=== PATIENT | male | born 1980 | race Caucasian/White ===

== ENCOUNTER 2018-10-03 19:41 | Inpatient (IN) | payer MEDICAID ==
[~2018-10-03] VITALS: Ht 160 cm; Wt 84.0 kg
[~2018-10-03 19:41] MED LIST: ASPI-1046 PO; ATOR20TA38 PO; METO-407 PO; NEPH PO; NIFE60TA60 PO
[2018-10-03 19:45] VITALS: Ht 160 cm; Wt 84.0 kg
--- NOTE | 2018-10-03 20:00 | ERD ---
ER Documentation Chief Complaint Chief Complaint chest pain since yesterday. last dialysis wednesday HPI This is a 38-year-old man with end-stage kidney disease hemodialysis dependent and last hemodialysis about 2 days ago presenting with sharp nonexertional nonradiating chest pain, tactile fever, cough x3 days. Patient also complains of nasal congestion and sore throat. He has had no vomiting or diarrhea, no abdominal pain, no headache or blurry vision, patient denies shortness of breath. ROS All systems reviewed and are negative except as per history of present illness. Medications Home Meds Active Scripts Atorvastatin Calcium* (Atorvastatin Calcium*) 20 Mg Tablet, 20 MG PO QHS, #30 [facility] Aspirin* (Aspirin* (EC)) 81 Mg Tablet.dr, 81 MG PO DAILY for 30 Days, TAB [facility] Multivit/Ca Carb/B Cmplx/Fa* (Tara-Henna*) 1 Tab Tab, 1 TAB PO DAILY for 30 Days, TAB [facility] 06/[facility]/15 Nifedipine* (Procardia XL*) 60 Mg Tabsr, 60 MG PO BID for 30 Days, TAB [facility] 06/19/15 Metoprolol Tartrate* (Lopressor*) 100 Mg Tab, 100 MG PO BID for 30 Days, TAB [facility] 06/19/15 Allergies Allergies: Coded Allergies: No Known Allergy (Unverified , 06/20/15) PMhx/Soc Hypertension, hypertensive retinopathy, end-stage kidney disease hemodialysis dependent, hyperlipidemia, history of stroke History of Surgery: No Anesthesia Reaction: No Hx Neurological Disorder: No Hx Respiratory Disorders: No Hx Cardiac Disorders: Yes Hx Psychiatric Problems: No Hx Miscellaneous Medical Probl: No Hx Alcohol Use: No Hx Substance Use: No Hx Tobacco Use: No FmHx Family History: No diabetes Physical Exam Vitals Vital Signs Date Temp Pulse Resp B/P (MAP) Pulse Ox O2 O2 Flow FiO2 Time Delivery Rate 10/03/18 101.1 20:17 10/03/18 101.1 90 27 169/92 95 Room Air 20:00 (117) 10/03/18 103.1 89 20 169/92 100 19:45 (117) Physical Exam GENERAL: Well-developed, well-nourished, appears dehydrated, febrile HEENT: Dry mucous membranes, pink conjunctiva, no cervical spine tenderness or step-off deformities, no pharyngeal erythema or exudates NEURO: Alert and oriented 3, cranial nerves II through XII intact bilaterally, pupils equal round reactive to light, no focal deficits or facial asymmetry, sensation intact distally Strength 5/5 in upper and lower extremities bilaterally CARDIAC: Tachycardic and regular, no murmurs rubs or gallops LUNGS: Crackles at the left base, poor breath sounds bilaterally, no wheezing or stridor ABDOMEN: Soft nontender, no guarding, no rigidity, no rebound, no psoas sign no obturator sign. SKIN: Hot and dry to touch, no abrasions, contusions, or hematomas, no lacerations, no ecchymosis, no target lesions, and without ulcers EXTREMITIES: No clubbing cyanosis or edema, calves are bilaterally symmetrical, no Homans sign, no popliteal cord sign. Distal pulses equal and bilateral PSYCH: Normal affect without agitation or irritability Result Diagram: 10/03/18200110/03/182001 Results 24 hrs Laboratory Tests Test 10/03/18 20:02 10/03/18 20:06 10/03/18 20:39 White Blood Count 14.4 10^3/ul Red Blood Count 3.91 10^6/ul Hemoglobin 10.8 g/dl Hematocrit 33.3 % Mean Corpuscular Volume 85.2 fl Mean Corpuscular Hemoglobin 27.6 pg Mean Corpuscular 32.4 g/dl Hemoglobin Concent Red Cell Distribution Width 15.4 % Platelet Count 121 10^3/UL Mean Platelet Volume 11.1 fl Immature Granulocytes % 0.700 % Neutrophils % 82.6 % Lymphocytes % 6.3 % Monocytes % 10.1 % Eosinophils % 0.1 % Basophils % 0.2 % Nucleated Red Blood Cells % 0.0 /100WBC Immature Granulocytes # 0.100 10^3/ul Neutrophils # 11.9 10^3/ul Lymphocytes # 0.9 10^3/ul Monocytes # 1.5 10^3/ul Eosinophils # 0.0 10^3/ul Basophils # 0.0 10^3/ul Nucleated Red Blood Cells # 0.0 10^3/ul Prothrombin Time 15.4 Sec Prothrombin Time Ratio 1.2 INR International Normalized Ratio 1.21 Activated Partial Thromboplast 36.4 Sec Time Sodium Level 140 mmol/L Potassium Level 4.2 mmol/L Chloride Level 100 mmol/L Carbon Dioxide Level 25 mmol/L Anion Gap 15 Blood Urea Nitrogen 75 mg/dl Creatinine 14.70 mg/dl Est Glomerular Filtrat Rate mL/min 4 mL/min Glucose Level 122 mg/dl Calcium Level 9.4 mg/dl Total Bilirubin 0.3 mg/dl Direct Bilirubin 0.00 mg/dl Indirect Bilirubin 0.3 mg/dl Aspartate Amino Transf (AST/SGOT) 17 IU/L Alanine 35 IU/L Aminotransferase (ALT/SGPT) Alkaline Phosphatase 73 IU/L Troponin I 0.109 ng/ml C-Reactive Protein 8.4 mg/dl Total Protein 7.4 g/dl Albumin 4.3 g/dl Globulin 3.10 g/dl Albumin/Globulin Ratio 1.38 Lipase 61 U/L POC Venous Lactate 1.2 mmol/L Lactic Acid Level 1.0 mmol/L Current Medications Medications Dose Sig/Ester Start Time Status Last (Trade) Ordered Route PRN Stop Time Admin Dose Reason Admin Ibuprofen 600 mg ONCE ONCE 10/03/18 DC 10/03/18 (Motrin) PO 20:30 20:17 10/03/18 20:31 Cefepime HCl 50 ml @ ONCE ONCE 10/03/18 DC 10/03/18 100 mls/hr IVPB 20:30 20:17 10/03/18 20:59 Vancomycin VANCOMYCIN PER 10/03/18 HCl (Vanco PER PHARMACY PROTOCOL XX 21:00 Iv Per Pharmacy) IV Flush 3 ml PER 10/03/18 (NS 3 ml) PROTOCOL IV 21:00 Ondansetron 4 mg Q6H PRN 10/03/18 HCl (Zofran IV 21:00 Inj) NAUSEA/VOMITI NG 650 mg Q6H PRN 10/03/18 Acetaminophen PO .PAIN 1-3 21:00 (Tylenol OR TEMP Tab) Morphine 2 mg Q4H PRN 10/03/18 Sulfate IV .PAIN 21:00 (morphine) 7-10 Docusate 100 mg Q12H PRN 10/03/18 Sodium PO 21:00 (Colace) .CONSTIPATION Bisacodyl 5 mg DAILY PRN 10/03/18 (Dulcolax) PO 21:00 .CONSTIPATION Heparin 5,000 unit Q8 SC 10/03/18 Sodium 22:00 (Porcine) (Heparin (5000 Units/1ml)) Vancomycin 250 ml @ ONCE ONCE 10/03/18 10/03/18 HCl 1.25 83.333 mls/ IVPB 21:00 21:20 gm/Sodium hr 10/03/18 23:59 Chloride Aspirin 324 mg ONCE ONCE 10/03/18 DC 10/03/18 (Aspirin) PO 21:30 21:09 10/03/18 21:31 Procedures/MDM IV line was established patient was placed on manager cardiac rhythm strip revealed a sinus rhythm at about 90 bpm with upright P and T waves. Patient was afebrile, blood cultures were ordered results are pending I will follow-up EKG performed, read by me: 92 bpm, normal sinus rhythm, normal axis, no acute ST segment changes, narrow QRS complex, with good R-wave progression in precordial leads, anterolateral T wave inversions 1 view chest x-ray performed, read by me reveals congestion bilaterally and left lower lobe infiltrate, cardiomegaly, no pneumothorax. I administered ibuprofen 600 mg p.o. for fever, cefepime 1 g IV, and vancomycin 1 g IV CBC reveals a leukocytosis of 14, electrolytes revealed kidney failure, liver function tests normal, troponin negative, lactic acid level low. I do not suspect sepsis. I also administered aspirin 324 mg p.o. for cardioprotective measures. Patient will be admitted to telemetry setting for continued medical management and continued IV antibiotics Departure Diagnosis: Primary Impression: Hypertension Hypertension type: essential hypertension Qualified Codes: I10 - Essential (primary) hypertension Additional Impressions: Chest pain Chest pain type: unspecified Qualified Codes: R07.9 - Chest pain, unspecified Pneumonia Pneumonia type: due to unspecified organism Laterality: left Lung location: lower lobe of lung Qualified Codes: J18.1 - Lobar pneumonia, unspecified organism End stage kidney disease Condition: KIRIT Landis MD October 03, 2018 20:00
[2018-10-03] MEDS ORDERED: IBUPROFEN 600 MG TAB PO ONE (20:30)
[2018-10-03] MEDS ORDERED: CEFEPIME 1GM/50 ML (PMX) 50 ML IVPB ONE (20:30)
[2018-10-03] MEDS ORDERED: VANCOMYCIN HCL 1.25 GM in SOD CHLORIDE 0.9% 250 ML IVPB ONE (21:00)
[2018-10-03] MEDS ORDERED: NACL 0.9% 3 ML SYG IV SCH (21:00)
[2018-10-03] MEDS ORDERED: VANCOMYCIN IV PER PHARMACY XX SCH (21:00)
[2018-10-03] MEDS ORDERED: ONDANSETRON 4 MG INJ IV PRN (21:00)
[2018-10-03] MEDS ORDERED: ACETAMINOPHEN 325 MG TAB PO PRN (21:00)
[2018-10-03] MEDS ORDERED: DOCUSATE SODIUM 100 MG CAP PO PRN (21:00)
[2018-10-03] MEDS ORDERED: morphine 2 MG INJ IV PRN (21:00)
[2018-10-03] MEDS ORDERED: BISACODYL (EC) 5 MG TAB PO PRN (21:00)
[2018-10-03] MEDS ORDERED: ASPIRIN 81 MG TAB PO ONE (21:30)
[2018-10-03] MEDS: HEPARIN 5,000 UNIT/1 ML VIAL SC SCH (22:36)
--- NOTE | 2018-10-03 23:06 | HP ---
Date/Time of Note Date/Time of Note DATE: 10/03/18 TIME: 22:55 Assessment/Plan VTE Prophylaxis Pharmacological prophylaxis: heparin Lines/Catheters IV Catheter Type (from Nrs): Saline Lock Assessment/Plan Hospital Course This is a 38-year-old male being admitted to the telemetry floor for: #1 chest pain: Rule out ACS versus pneumonia. Will trend cardiac enzymes x3, first troponin was 0.1. EKG did show T wave inversions in leads V5 and V6. His chest pain does seem pleuritic nonetheless we will work-up for ACS. Will check an echocardiogram. Will consult cardiology. #2 Sepsis: Secondary to underlying healthcare associated pneumonia versus other. Patient's symptoms did start after his dialysis on Wednesday. Will treat the patient at the current time with vancomycin and Zosyn renally dose. Await culture results. Trend lactic acid levels. #3 End-stage renal disease: Patient reports that he has been on HD for approxi mately 2 years, I do not have a recent renal function. His BUN is 75/creatinine 14.7 patient is on HD Wednesday. His rehabilitation physician is . We will need to continue patient home medications. Avoid nephrotoxic agents. Will consult nephrology. #4 hypertension: Resume patient's home medications #5 hyperlipidemia: Continue statin #6 questionable obesity: We will need to confirm patient's correct body weight and height, nonetheless in the meantime I will check a hemoglobin A1c, lipid panel, TSH #7 DVT GI prophylaxis: Heparin subcu, no GI prophylaxis indicated Further treatment strategy will be implemented as per the clinical course Result Diagram: 10/03/18200110/03/182001 Results 24hrs Laboratory Tests Test 10/03/18 20:02 10/03/18 20:06 10/03/18 20:39 10/03/18 22:07 White Blood Count 14.4 #H Red Blood Count 3.91 L Hemoglobin 10.8 L Hematocrit 33.3 L Mean Corpuscular 85.2 Volume Mean Corpuscular 27.6 L Hemoglobin Mean Corpuscular 32.4 Hemoglobin Concent Red Cell 15.4 H Distribution Width Platelet Count 121 L Mean Platelet Volume 11.1 #H Immature 0.700 H Granulocytes % Neutrophils % 82.6 H Lymphocytes % 6.3 L Monocytes % 10.1 Eosinophils % 0.1 Basophils % 0.2 Nucleated Red Blood 0.0 Cells % Immature 0.100 H Granulocytes # Neutrophils # 11.9 H Lymphocytes # 0.9 Monocytes # 1.5 H Eosinophils # 0.0 Basophils # 0.0 Nucleated Red Blood 0.0 Cells # Prothrombin Time 15.4 H Prothrombin Time 1.2 Ratio INR International 1.21 Normalized Ratio Activated 36.4 H Partial Thromboplast Time Sodium Level 140 Potassium Level 4.2 Chloride Level 100 Carbon Dioxide Level 25 Anion Gap 15 H Blood Urea Nitrogen 75 H Creatinine 14.70 H Est Glomerular 4 L Filtrat Rate mL/min Glucose Level 122 Calcium Level 9.4 Total Bilirubin 0.3 Direct Bilirubin 0.00 Indirect Bilirubin 0.3 Aspartate Amino 17 Transf (AST/SGOT) Alanine 35 Aminotransferase (AL T/SGPT) Alkaline Phosphatase 73 Troponin I 0.109 C-Reactive Protein 8.4 H Total Protein 7.4 Albumin 4.3 Globulin 3.10 Albumin/Globulin 1.38 Ratio Lipase 61 POC Venous Lactate 1.2 Lactic Acid Level 1.0 0.7 HPI/ROS Admit Date/Time Admit Date/Time Hx of Present Illness Chief complaint: Left-sided chest pain x2 days, fevers This is a 38-year-old man with end-stage kidney disease hemodialysis dependent and last hemodialysis about 2 days ago presenting with sharp nonexertional nonradiating chest pain, tactile fever, cough x3 days. Patient also complains of nasal congestion and sore throat. He has had no vomiting or diarrhea, no abdominal pain, no headache or blurry vision, patient denies shortness of breath. Allergies: NKDA Medications: See IMANI GUIDO Const: As per HPI Eyes : No pain discharge or redness or change in visual acuity ENT: No pain, sore throat, congestion, congestion, dysphagia or discharge Respiratory: As per HPI Cardiovascular: As per HPI GI : no change in appetite, abdominal pain, nausea, vomiting, diarrhea, constipation, or change in the color his stool Genitourinary: No dysuria, hematuria, flank pain , discharge or CVA tenderness Musculoskeletal: No joint pain, back pain, neck pain, restricted range of motion in neck or joints Skin: No rash, bruising or hives Neuro: No headache, dizziness, syncope, seizure, focal weakness Endocrine: No polyuria, polydipsia, temperature intolerance Psych: No hallucination, depression, anxiety or suicidal ideation PMH/Family/Social Past Medical History End-stage renal disease on hemodialysis Wednesday, hypertension Medications Current Medications Vancomycin HCl (Vanco Iv Per Pharmacy) VANCOMYCIN PER PHARMACY PER PROTOCOL XX ; Start 10/03/18 at 21:00 IV Flush (NS 3 ml) 3 ml PER PROTOCOL IV ; Start 10/03/18 at 21:00 Ondansetron HCl (Zofran Inj) 4 mg Q6H PRN IV NAUSEA/VOMITING; Start 10/03/18 at 21:00 Acetaminophen (Tylenol Tab) 650 mg Q6H PRN PO .PAIN 1-3 OR TEMP; Start 10/03/18 at 21:00 Docusate Sodium (Colace) 100 mg Q12H PRN PO .CONSTIPATION; Start 10/03/18 at 21:00 Bisacodyl (Dulcolax) 5 mg DAILY PRN PO .CONSTIPATION; Start 10/03/18 at 21:00 Heparin Sodium (Porcine) (Heparin (5000 Units/1ml)) 5,000 unit Q8 SC Last administered on 10/03/18at 22:36; Admin Dose 5,000 UNIT; Start 10/03/18 at 22:00 Vancomycin HCl 1.25 gm/Sodium Chloride 250 ml @ 83.333 mls/ hr ONCE ONCE IVPB Last administered on 10/03/18at 21:20; Admin Dose 83.333 MLS/HR; Start 10/03/18 at 21:00; Stop 10/03/18 at 23:59 Morphine Sulfate (morphine) 1 mg Q4H PRN IV .PAIN 7-10; Start 10/04/18 at 01:00 Coded Allergies: No Known Allergy (Unverified , 06/20/15) Past Surgical History Left upper extremity AV fistula Family History Significant Family History: no pertinent family hx Social History Alcohol Use: none Smoking Status: Never smoker Drug Use: none Exam/Review of Systems Vital Signs Vitals Vital Signs Date Temp Pulse Resp B/P (MAP) Pulse Ox O2 O2 Flow FiO2 Time Delivery Rate 10/03/18 89 20 157/88 95 Room Air 22:40 (111) 10/03/18 101.1 20:17 Exam Exam General: Patient is a pleasant male currently lying in bed in no acute distress HEENT: Atraumatic, normocephalic. The pupils are equal, round and reactive. Ex traocular motor are intact Neck: Supple with full range of motion. No rigidity or meningismus Chest: Nontender Lungs: Coarse breath sounds bilaterally, greater on the left side Heart: Normal S1-S2, Regular rhythm and rate. No murmur, S3, or S4 Abdomen: Soft , nontender, nondistended , bowel sounds are present. No guarding no rebound tenderness , No masses or organomegaly. No costovertebral temporal angle mass Extremities: Normal to inspection, no edema no cyanosis Skin: Left upper extremity AV fistula Neurologic: Normal mental status, speech normal, cranial nerves II through XII are intact, motor and sensory are intact, no focal weakness Additional Comments EKG: Normal sinus rhythm at approximately 92 bpm, T wave inversions noted in leads V5, V6 PROCEDURE: XR Chest. CLINICAL INDICATION: Sepsis TECHNIQUE: Single AP view of the chest were obtained COMPARISON: 06/12/2015 FINDINGS: The heart is moderately enlarged. The pulmonary vasculature are mildly prominent. The aorta is unremarkable. There is patchy consolidation seen in the left mid lung. The right lung is clear. There is no effusion or pneumothorax. There is no acute osseous abnormality. IMPRESSION: Cardiomegaly is seen with mild vascular congestion. Patchy consolidation of the left mid lung could represent pneumonia. RPTAT: AA .Rigo Reeves MD, Date Time Electronically viewed and signed by .Rigo Reeves MD, MD on 10/03/2018 20:35 .J/ CC: KIRIT US MD [id number] TOBIAS PELLETIER October 03, 2018 23:05
[2018-10-03 23:20] VITALS: PULSE 83
[2018-10-03] MEDS: METOPROLOL 100 MG TAB PO SCH (23:46)
[2018-10-03] MEDS: PIPER-TAZO 2.25 GM (PMX) 50 ML IVPB SCH (23:47)
[2018-10-03] MEDS: NIFEdipine (XL) 60 MG TAB PO SCH (23:47)
[2018-10-04] VITALS (26 sets, daily range): BP systolic 118–151; BP diastolic 60–82; PULSE 64–82; RESP 18–20
[2018-10-04] MEDS ORDERED: SOD CHLORIDE 0.9% 250 ML IV ONE
[2018-10-04] MEDS ORDERED: morphine 2 MG INJ IV PRN (01:00)
[2018-10-04] MEDS: HEPARIN 5,000 UNIT/1 ML VIAL SC SCH ×3 (05:36→22:39)
--- NOTE | 2018-10-04 07:32 | CONS ---
Assessment/Plan Assessment/Plan Assessment/Plan (Daily) - ESRD on Hemodialysis TTS @ [facility] [place] - Hypertension - Anemia of Chronic Disease - Angina / Chest pain - Elevated WBC / PNA - Hyperphosphatemia - High Cholesterol PLAN: - Observing on Tele Monitoring - Follow up with serial troponin - IV Antibiotics - Will plan for Dialysis today ( regular dialysis days are TTS @ [facility] [place] ) - Blood Cultures on Dialysis as well - On Long Acting "EPO" as out patient - Portia pinzon with [facility]. THANK YOU VJasiel ROCKWELL Consultation Date/Type/Reason Admit Date/Time Date of Consultation: October 04, 2018 Type of Consult - Nephrology Reason for Consultation - ESRD on hemodialysis Date/Time of Note DATE: 10/04/18 TIME: 07:26 Hx of Present Illness 38-year-old man with end-stage kidney disease hemodialysis dependent and last hemodialysis about 2 days ago presenting with sharp nonexertional nonradiating chest pain, tactile fever, cough x3 days. Patient also complains of nasal congestion and sore throat. On Hemodialysis @ [facility] [place] TTS. Last Dialysis was 10/01/2018. AVF Left upper arm. No open wound. Good thrill. No pain. Constitutional: no complaints Eyes: no complaints ENT: no complaints Respiratory: cough Cardiovascular: chest pain Genitourinary: no complaints Musculoskeletal: no complaints Skin: no complaints Neurologic: no complaints Endocrine: no complaints Past Medical History Medical History: coronary artery disease, hypertension, renal disease Home Meds Active Scripts Atorvastatin Calcium* (Atorvastatin Calcium*) 20 Mg Tablet, 20 MG PO QHS, #30 TAB Prov:BREE ARANA. 06/20/15 Aspirin* (Aspirin* (EC)) 81 Mg Tablet.dr, 81 MG PO DAILY for 30 Days, TAB Prov:BREE ARANA . 06/20/15 Multivit/Ca Carb/B Cmplx/Fa* (Tara-Henna*) 1 Tab Tab, 1 TAB PO DAILY for 30 Days, TAB Prov:BREE ARANA. 06/19/15 Nifedipine* (Procardia XL*) 60 Mg Tabsr, 60 MG PO BID for 30 Days, TAB Prov:BREE ARANA . 06/19/15 Metoprolol Tartrate* (Lopressor*) 100 Mg Tab, 100 MG PO BID for 30 Days, TAB Prov:BREE ARANA 06/19/15 Medications Current Medications Vancomycin HCl (Vanco Iv Per Pharmacy) VANCOMYCIN PER PHARMACY PER PROTOCOL XX ; Start 10/03/18 at 21:00 IV Flush (NS 3 ml) 3 ml PER PROTOCOL IV ; Start 10/03/18 at 21:00 Ondansetron HCl (Zofran Inj) 4 mg Q6H PRN IV NAUSEA/VOMITING; Start 10/03/18 at 21:00 Acetaminophen (Tylenol Tab) 650 mg Q6H PRN PO .PAIN 1-3 OR TEMP; Start 10/03/18 at 21:00 Docusate Sodium (Colace) 100 mg Q12H PRN PO .CONSTIPATION; Start 10/03/18 at 21:00 Bisacodyl (Dulcolax) 5 mg DAILY PRN PO .CONSTIPATION; Start 10/03/18 at 21:00 Heparin Sodium (Porcine) (Heparin (5000 Units/1ml)) 5,000 unit Q8 SC Last administered on 10/04/18at 05:36; Admin Dose 5,000 UNIT; Start 10/03/18 at 22:00 Morphine Sulfate (morphine) 1 mg Q4H PRN IV .PAIN 7-10 Last administered on 10/04/18at 05:26; Admin Dose 1 MG; Start 10/04/18 at 01:00 Piperacillin Sod/ Tazobactam Sod 50 ml @ 2.25 mls/hr Q12 IVPB Last admi nistered on 10/03/18at 23:47; Admin Dose 2.25 MLS/HR; Start 10/03/18 at 23:00 Aspirin (Halfprin) 81 mg DAILY PO ; Start 10/04/18 at 09:00 Atorvastatin Calcium (Lipitor) 20 mg QHS PO ; Start 10/04/18 at 21:00 Metoprolol Tartrate (Lopressor) 100 mg BID PO Last administered on 10/03/18at 23:46; Admin Dose 100 MG; Start 10/03/18 at 23:30 Multivit/Ca Carb/ B Cmplx/FA/Prenat (Tara-Henna) 1 tab DAILY PO ; Start 10/04/18 at 09:00 Nifedipine (Procardia Xl) 60 mg BID PO Last administered on 10/03/18at 23:47; Admin Dose 60 MG; Start 10/03/18 at 23:30 Miscellaneous Information Patients own medicat... BID@ XX ; Start 10/04/18 at 10:00 Allergies: Coded Allergies: No Known Allergy (Unverified , 06/20/15) Past Surgical History Past Surgical Hx: other Family History Significant Family History: no pertinent family hx Social History Alcohol Use: none Smoking Status: Never smoker Drug Use: none Exam/Review of Systems Exam Vitals Vital Signs Date Temp Pulse Resp B/P (MAP) Pulse Ox O2 O2 Flow FiO2 Time Delivery Rate 10/04/18 98.6 77 18 130/74 94 Room Air 07:05 (92) Constitutional: alert, oriented, well developed Psych: no complaints Head: normocephalic Neck: supple Respiratory: crackles/rales Cardiovascular: regular rate and rhythm Gastrointestinal: soft Results Result Diagram: 10/04/18 0516 10/04/18 0516 Results 24hrs Laboratory Tests Test 10/03/18 20:02 10/03/18 20:06 10/03/18 20:39 10/03/18 22:07 White Blood Count 14.4 #H Red Blood Count 3.91 L Hemoglobin 10.8 L Hematocrit 33.3 L Mean Corpuscular 85.2 Volume Mean Corpuscular 27.6 L Hemoglobin Mean Corpuscular 32.4 Hemoglobin Concent Red Cell 15.4 H Distribution Width Platelet Count 121 L Mean Platelet Volume 11.1 #H Immature 0.700 H Granulocytes % Neutrophils % 82.6 H Lymphocytes % 6.3 L Monocytes % 10.1 Eosinophils % 0.1 Basophils % 0.2 Nucleated Red Blood 0.0 Cells % Immature 0.100 H Granulocytes # Neutrophils # 11.9 H Lymphocytes # 0.9 Monocytes # 1.5 H Eosinophils # 0.0 Basophils # 0.0 Nucleated Red Blood 0.0 Cells # Prothrombin Time 15.4 H Prothrombin Time 1.2 Ratio INR International 1.21 Normalized Ratio Activated 36.4 H Partial Thromboplast Time Sodium Level 140 Potassium Level 4.2 Chloride Level 100 Carbon Dioxide Level 25 Anion Gap 15 H Blood Urea Nitrogen 75 H Creatinine 14.70 H Est Glomerular 4 L Filtrat Rate mL/min Glucose Level 122 Calcium Level 9.4 Total Bilirubin 0.3 Direct Bilirubin 0.00 Indirect Bilirubin 0.3 Aspartate Amino 17 Transf (AST/SGOT) Alanine 35 Aminotransferase (AL T/SGPT) Alkaline Phosphatase 73 Troponin I 0.109 C-Reactive Protein 8.4 H Total Protein 7.4 Albumin 4.3 Globulin 3.10 Albumin/Globulin 1.38 Ratio Lipase 61 POC Venous Lactate 1.2 Lactic Acid Level 1.0 0.7 Test 10/04/18 00:48 10/04/18 05:16 Lactic Acid Level 0.7 Creatine Kinase 46 33 Creatine Kinase 0.5 0.7 Index Creatinine Kinase MB < 0.22 < 0.22 (Mass) Troponin I 0.133 *H 0.123 *H White Blood Count 14.1 H Red Blood Count 3.40 L Hemoglobin 9.4 L Hematocrit 29.3 L Mean Corpuscular 86.2 Volume Mean Corpuscular 27.6 L Hemoglobin Mean Corpuscular 32.1 Hemoglobin Concent Red Cell 15.5 H Distribution Width Platelet Count 104 L Mean Platelet Volume 10.8 H Immature 0.500 H Granulocytes % Neutrophils % 78.5 H Lymphocytes % 10.0 L Monocytes % 10.5 Eosinophils % 0.4 Basophils % 0.1 Nucleated Red Blood 0.0 Cells % Immature 0.070 H Granulocytes # Neutrophils # 11.1 H Lymphocytes # 1.4 Monocytes # 1.5 H Eosinophils # 0.1 Basophils # 0.0 Nucleated Red Blood 0.0 Cells # Sodium Level 141 Potassium Level 4.0 Chloride Level 105 Carbon Dioxide Level 24 Anion Gap 12 Blood Urea Nitrogen 83 H Creatinine 15.33 H Est Glomerular 4 L Filtrat Rate mL/min Glucose Level 104 Hemoglobin A1c 5.0 Calcium Level 8.6 Magnesium Level 3.1 H Total Bilirubin 0.2 Direct Bilirubin 0.00 Indirect Bilirubin 0.2 Aspartate Amino 13 L Transf (AST/SGOT) Alanine 36 Aminotransferase (AL T/SGPT) Alkaline Phosphatase 56 Total Protein 5.9 #L Albumin 3.5 Globulin 2.40 Albumin/Globulin 1.45 Ratio Triglycerides Level 93 Cholesterol Level 79 L LDL Cholesterol, 26 Calculated HDL Cholesterol 34 Cholesterol/HDL 2.3 Ratio Thyroid Stimulating 1.250 Hormone (TSH) Medications Medication Current Medications Vancomycin HCl (Vanco Iv Per Pharmacy) VANCOMYCIN PER PHARMACY PER PROTOCOL XX ; Start 10/03/18 at 21:00 IV Flush (NS 3 ml) 3 ml PER PROTOCOL IV ; Start 10/03/18 at 21:00 Ondansetron HCl (Zofran Inj) 4 mg Q6H PRN IV NAUSEA/VOMITING; Start 10/03/18 at 21:00 Acetaminophen (Tylenol Tab) 650 mg Q6H PRN PO .PAIN 1-3 OR TEMP; Start 10/03/18 at 21:00 Docusate Sodium (Colace) 100 mg Q12H PRN PO .CONSTIPATION; Start 10/03/18 at 21:00 Bisacodyl (Dulcolax) 5 mg DAILY PRN PO .CONSTIPATION; Start 10/03/18 at 21:00 Heparin Sodium (Porcine) (Heparin (5000 Units/1ml)) 5,000 unit Q8 SC Last administered on 10/04/18at 05:36; Admin Dose 5,000 UNIT; Start 10/03/18 at 22:00 Morphine Sulfate (morphine) 1 mg Q4H PRN IV .PAIN 7-10 Last administered on 10/04/18at 05:26; Admin Dose 1 MG; Start 10/04/18 at 01:00 Piperacillin Sod/ Tazobactam Sod 50 ml @ 2.25 mls/hr Q12 IVPB Last administered on 10/03/18at 23:47; Admin Dose 2.25 MLS/HR; Start 10/03/18 at 23:00 Aspirin (Halfprin) 81 mg DAILY PO ; Start 10/04/18 at 09:00 Atorvastatin Calcium (Lipitor) 20 mg QHS PO ; Start 10/04/18 at 21:00 Metoprolol Tartrate (Lopressor) 100 mg BID PO Last administered on 10/03/18at 23 :46; Admin Dose 100 MG; Start 10/03/18 at 23:30 Multivit/Ca Carb/ B Cmplx/FA/Prenat (Tara-Henna) 1 tab DAILY PO ; Start 10/04/18 at 09:00 Nifedipine (Procardia Xl) 60 mg BID PO Last administered on 10/03/18at 23:47; Admin Dose 60 MG; Start 10/03/18 at 23:30 Miscellaneous Information Patients own medicat... BID@10,16 XX ; Start 10/04/18 at 10:00 JOSI CHIRINOS MD October 04, 2018 07:32
[2018-10-04] MEDS: MULTIVIT/CA CARB/B CMPLX/FA TAB PO SCH (08:16)
[2018-10-04] MEDS: NIFEdipine (XL) 60 MG TAB PO SCH ×2 (08:16→20:47)
[2018-10-04] MEDS: METOPROLOL 100 MG TAB PO SCH ×2 (08:17→20:47)
[2018-10-04] MEDS: ASPIRIN (EC) 81 MG TAB PO SCH (08:17)
[2018-10-04] MEDS: PIPER-TAZO 2.25 GM (PMX) 50 ML IVPB SCH ×2 (08:17→20:47)
--- NOTE | 2018-10-04 11:08 | CONS ---
Assessment/Plan Assessment/Plan Hospital Course (Demo Recall) 1. Mildly abnormal troponin most likely secondary to below. Rule out acute [place] 2. Pneumonia 3. Renal failure on dialysis 4. Hypertension 5. Pleuritic chest pain most likely secondary to his pneumonia Recommendations: EKG and echocardiogram has been ordered Antibiotic management as per internal medicine Hemodialysis as per renal Continue with blood pressure control Further recommendation after more information is available. Aspirin to be continued for now Thank you for his referral. We will continue to follow along with you ELSA SHAH MD [facility] Consultation Date/Type/Reason Admit Date/Time Date of Consultation: October 04, 2018 Type of Consult Cardiology Reason for Consultation + TROP Requesting Provider: TOBIAS PELLETIER Date/Time of Note DATE: 10/04/18 TIME: 11:03 Hx of Present Illness Interventional cardiology consultation note Chief complaint: Fever cough chest pain Reason for consult: Abnormal troponin History of present illness: Thank you for this referral. This is a 38-year-old gentleman with history of renal failure on dialysis who has had a fever over the past couple of days. Patient also has been coughing and has had left-sided pain sharp worse with breathing. His troponin was mildly elevated for which I was kindly asked to evaluate and treat. Patient denies any exertional chest pain or pressure denies history of coronary artery disease. Allergies: No known drug allergies Medications were reviewed as per medical reconciliation sheet Family history: No history of early coronary artery disease Social history: Does not smoke at this point Past medical history: Renal failure on dialysis, hypertension, Review of system: Patient denies all others except for above-mentioned Past Medical History Home Meds Active Scripts Atorvastatin Calcium* (Atorvastatin Calcium*) 20 Mg Tablet, 20 MG PO QHS, #30 TAB Prov:BREE ARANA. 06/20/15 Aspirin* (Aspirin* (EC)) 81 Mg Tablet.dr, 81 MG PO DAILY for 30 Days, TAB Prov:BREE ARANA. 06/20/15 Multivit/Ca Carb/B Cmplx/Fa* (Tara-Henna*) 1 Tab Tab, 1 TAB PO DAILY for 30 Days, TAB Prov:BREE ARANA. 06/19/15 Nifedipine* (Procardia XL*) 60 Mg Tabsr, 60 MG PO BID for 30 Days, TAB Prov:BREE ARANA. 06/19/15 Metoprolol Tartrate* (Lopressor*) 100 Mg Tab, 100 MG PO BID for 30 Days, TAB Prov:BREE ARANA. 06/19/15 Medications Current Medications Vancomycin HCl (Vanco Iv Per Pharmacy) VANCOMYCIN PER PHARMACY PER PROTOCOL XX ; Start 10/03/18 at 21:00 IV Flush (NS 3 ml) 3 ml PER PROTOCOL IV ; Start 10/03/18 at 21:00 Ondansetron HCl (Zofran Inj) 4 mg Q6H PRN IV NAUSEA/VOMITING; Start 10/03/18 at 21:00 Acetaminophen (Tylenol Tab) 650 mg Q6H PRN PO .PAIN 1-3 OR TEMP; Start 10/03/18 at 21:00 Docusate Sodium (Colace) 100 mg Q12H PRN PO .CONSTIPATION; Start 10/03/18 at 21:00 Bisacodyl (Dulcolax) 5 mg DAILY PRN PO .CONSTIPATION; Start 10/03/18 at 21:00 Heparin Sodium (Porcine) (Heparin (5000 Units/1ml)) 5,000 unit Q8 SC Last administered on 10/04/18at 05:36; Admin Dose 5,000 UNIT; Start 10/03/18 at 22:00 Morphine Sulfate (morphine) 1 mg Q4H PRN IV .PAIN 7-10 Last administered on 10/04/18at 05:26; Admin Dose 1 MG; Start 10/04/18 at 01:00 Piperacillin Sod/ Tazobactam Sod 50 ml @ 2.25 mls/hr Q12 IVPB Last admin istered on 10/04/18at 08:17; Admin Dose 2.25 MLS/HR; Start 10/03/18 at 23:00 Aspirin (Halfprin) 81 mg DAILY PO Last administered on 10/04/18at 08:17; Admin Dose 81 MG; Start 10/04/18 at 09:00 Atorvastatin Calcium (Lipitor) 20 mg QHS PO ; Start 10/04/18 at 21:00 Metoprolol Tartrate (Lopressor) 100 mg BID PO Last administered on 10/04/18at 08:17; Admin Dose 100 MG; Start 10/03/18 at 23:30 Multivit/Ca Carb/ B Cmplx/FA/Prenat (Tara-Henna) 1 tab DAILY PO Last administered on 10/04/18at 08:16; Admin Dose 1 TAB; Start 10/04/18 at 09:00 Nifedipine (Procardia Xl) 60 mg BID PO Last administered on 10/04/18at 08:16; Admin Dose 60 MG; Start 10/03/18 at 23:30 Miscellaneous Information Patients own medicat... BID@10,16 XX ; Start 10/04/18 at 10:00 Allergies: Coded Allergies: No Known Allergy (Unverified , 06/20/15) Past Surgical History Past Surgical Hx: other Social History Alcohol Use: none Smoking Status: Never smoker Drug Use: none Exam/Review of Systems Vital Signs Vitals Vital Signs Date Temp Pulse Resp B/P (MAP) Pulse Ox O2 O2 Flow FiO2 Time Delivery Rate 10/04/18 79 08:15 10/04/18 98.6 18 130/74 94 Room Air 07:05 (92) Exam Exam General: no acute distress HEENT: NC/AT. pupils are equal. round. NECK: NO JVD. no stridor. CV: RRR. systolic murmur; no gallop or rubs. PULM:+ Left lower lobe rhonchi. GI: SOFT, NT, ND, no rebound or guarding Extremity: trace B/L LE edema. no clubbing. neuro: awake and alert, OX3. Psych: calm and pleasant rectal: deferred : normal EKG is not done yet Chest x-ray shows: Cardiomegaly is seen with mild vascular congestion. Patchy consolidation of the left mid lung could represent pneumonia Labs Result Diagram: 10/04/1816 10/04/18 0516 Results 24hrs Laboratory Tests Test 10/03/18 20:02 10/03/18 20:06 10/03/18 20:39 10/03/18 22:07 White Blood Count 14.4 #H Red Blood Count 3.91 L Hemoglobin 10.8 L Hematocrit 33.3 L Mean Corpuscular 85.2 Volume Mean Corpuscular 27.6 L Hemoglobin Mean Corpuscular 32.4 Hemoglobin Concent Red Cell 15.4 H Distribution Width Platelet Count 121 L Mean Platelet Volume 11.1 #H Immature 0.700 H Granulocytes % Neutrophils % 82.6 H Lymphocytes % 6.3 L Monocytes % 10.1 Eosinophils % 0.1 Basophils % 0.2 Nucleated Red Blood 0.0 Cells % Immature 0.100 H Granulocytes # Neutrophils # 11.9 H Lymphocytes # 0.9 Monocytes # 1.5 H Eosinophils # 0.0 Basophils # 0.0 Nucleated Red Blood 0.0 Cells # Prothrombin Time 15.4 H Prothrombin Time 1.2 Ratio INR International 1.21 Normalized Ratio Activated 36.4 H Partial Thromboplast Time Sodium Level 140 Potassium Level 4.2 Chloride Level 100 Carbon Dioxide Level 25 Anion Gap 15 H Blood Urea Nitrogen 75 H Creatinine 14.70 H Est Glomerular 4 L Filtrat Rate mL/min Glucose Level 122 Calcium Level 9.4 Total Bilirubin 0.3 Direct Bilirubin 0.00 Indirect Bilirubin 0.3 Aspartate Amino 17 Transf (AST/SGOT) Alanine 35 Aminotransferase (AL T/SGPT) Alkaline Phosphatase 73 Troponin I 0.109 C-Reactive Protein 8.4 H Total Protein 7.4 Albumin 4.3 Globulin 3.10 Albumin/Globulin 1.38 Ratio Lipase 61 POC Venous Lactate 1.2 Lactic Acid Level 1.0 0.7 Test 10/04/18 00:48 10/04/18 05:16 Lactic Acid Level 0.7 Creatine Kinase 46 33 Creatine Kinase 0.5 0.7 Index Creatinine Kinase MB < 0.22 < 0.22 (Mass) Troponin I 0.133 *H 0.123 *H White Blood Count 14.1 H Red Blood Count 3.40 L Hemoglobin 9.4 L Hematocrit 29.3 L Mean Corpuscular 86.2 Volume Mean Corpuscular 27.6 L Hemoglobin Mean Corpuscular 32.1 Hemoglobin Concent Red Cell 15.5 H Distribution Width Platelet Count 104 L Mean Platelet Volume 10.8 H Immature 0.500 H Granulocytes % Neutrophils % 78.5 H Lymphocytes % 10.0 L Monocytes % 10.5 Eosinophils % 0.4 Basophils % 0.1 Nucleated Red Blood 0.0 Cells % Immature 0.070 H Granulocytes # Neutrophils # 11.1 H Lymphocytes # 1.4 Monocytes # 1.5 H Eosinophils # 0.1 Basophils # 0.0 Nucleated Red Blood 0.0 Cells # Sodium Level 141 Potassium Level 4.0 Chloride Level 105 Carbon Dioxide Level 24 Anion Gap 12 Blood Urea Nitrogen 83 H Creatinine 15.33 H Est Glomerular 4 L Filtrat Rate mL/min Glucose Level 104 Hemoglobin A1c 5.0 Calcium Level 8.6 Magnesium Level 3.1 H Total Bilirubin 0.2 Direct Bilirubin 0.00 Indirect Bilirubin 0.2 Aspartate Amino 13 L Transf (AST/SGOT) Alanine 36 Aminotransferase (AL T/SGPT) Alkaline Phosphatase 56 Total Protein 5.9 #L Albumin 3.5 Globulin 2.40 Albumin/Globulin 1.45 Ratio Triglycerides Level 93 Cholesterol Level 79 L LDL Cholesterol, 26 Calculated HDL Cholesterol 34 Cholesterol/HDL 2.3 Ratio Thyroid Stimulating 1.250 Hormone (TSH) Medications Medications Current Medications Vancomycin HCl (Vanco Iv Per Pharmacy) VANCOMYCIN PER PHARMACY PER PROTOCOL XX ; Start 10/03/18 at 21:00 IV Flush (NS 3 ml) 3 ml PER PROTOCOL IV ; Start 10/03/18 at 21:00 Ondansetron HCl (Zofran Inj) 4 mg Q6H PRN IV NAUSEA/VOMITING; Start 10/03/18 at 21:00 Acetaminophen (Tylenol Tab) 650 mg Q6H PRN PO .PAIN 1-3 OR TEMP; Start 10/03/18 at 21:00 Docusate Sodium (Colace) 100 mg Q12H PRN PO .CONSTIPATION; Start 10/03/18 at 21:00 Bisacodyl (Dulcolax) 5 mg DAILY PRN PO .CONSTIPATION; Start 10/03/18 at 21:00 Heparin Sodium (Porcine) (Heparin (5000 Units/1ml)) 5,000 unit Q8 SC Last administered on 10/04/18at 05:36; Admin Dose 5,000 UNIT; Start 10/03/18 at 22:00 Morphine Sulfate (morphine) 1 mg Q4H PRN IV .PAIN 7-10 Last administered on 10/04/18at 05:26; Admin Dose 1 MG; Start 10/04/18 at 01:00 Piperacillin Sod/ Tazobactam Sod 50 ml @ 2.25 mls/hr Q12 IVPB Last administered on 10/04/18at 08:17; Admin Dose 2.25 MLS/HR; Start 10/03/18 at 23:00 Aspirin (Halfprin) 81 mg DAILY PO Last administered on 10/04/18at 08:17; Admin Dose 81 MG; Start 10/04/18 at 09:00 Atorvastatin Calcium (Lipitor) 20 mg QHS PO ; Start 10/04/18 at 21:00 Metoprolol Tartrate (Lopressor) 100 mg BID PO Last administered on 10/04/18at 08:17; Admin Dose 100 MG; Start 10/03/18 at 23:30 Multivit/Ca Carb/ B Cmplx/FA/Prenat (Tara-Henna) 1 tab DAILY PO Last administered on 10/04/18at 08:16; Admin Dose 1 TAB; Start 10/04/18 at 09:00 Nifedipine (Procardia Xl) 60 mg BID PO Last administered on 10/04/18at 08:16; Admin Dose 60 MG; Start 10/03/18 at 23:30 Miscellaneous Information Patients own medicat... BID@ XX ; Start 10/04/18 at 10:00 ELSA SHAH MD October 04, 2018 11:08
--- NOTE | 2018-10-04 15:26 | RADRPT ---
Echocardiogram Report Patient Name: DAYANA WATTERSRPatient ID: [id number] : 1980 (38y 4m)Study Date: 10/04/2018 8:05:11 AM Gender: MAccession #: [id number] Tech: RafaelJasiel Pierre [facility] Location: [facility] Ref.Physician: TOBIAS PELLETIER Height(Cm): BSA: Weight(Kg): Quality: AdequateOrder Physician: TOBIAS PELLETIER Account #: Procedures: Echocardiographic Report: Transthoracic echocardiogram with complete 2D, M-Mode, and doppler examination. Indications: Chest Pain. Measurements: 2D/M Mode Doppler Measurement Value Normal Range Measurement Value Normal Range LVIDd 2D 5.6 [ 4.2 - 5.8 ] cm AV Mean Yash 1.3 [ 70.0 - 90.0 ] cm/sec LVIDs 2D 4.0 [ 2.5 - 4.0 ] cm AV Mean PG 8.0 [ 2.0 - 4.0 ] mmHg LVPWd 2D 1.2 [ 0.6 - 1.0 ] cm AV Peak Yash 2.1 [ 100.0 - 170.0 ] cm/sec IVSd 2D 1.1 [ 0.6 - 1.0 ] cm AV Peak PG 17.0 [ 2.0 - 9.0 ] mmHg AoR Diam 2D 2.9 [ 2.6 - 3.4 ] cm AV VTI 40.6 cm EDV 2D 156.0 [ 62.0 - 150.0 ] ml LVOT Mean Yash 1.0 [ 60.0 - 80.0 ] cm/sec ESV 2D 70.8 [ 21.0 - 61.0 ] ml LVOT Mean PG 5.0 [ 1.0 - 3.0 ] mmHg EF 2D 54.6 [ 52.0 - 72.0 ] percent LVOT Peak Yash 1.4 [ 70.0 - 110.0 ] cm/sec LA Dimen 2D 4.0 [ 3.0 - 4.0 ] cm LVOT Peak PG 8.0 [ 2.0 - 6.0 ] mmHg LVOT VTI 28.4 [ 20.0 - 30.0 ] cm MV E Peak Yash 1.4 [ 60.0 - 130.0 ] cm/sec MV A Peak Yash 0.6 [ 100.0 - 120.0 ] cm/sec MV E/A 2.2 [ 0.8 - 1.5 ] ratio MV Decel Time 183 [ 104 - 258 ] msec Lat E` Yash 0.1 [ 10.0 - 15.0 ] cm/sec Lateral E/E` 10.7 [ 1.0 - 2.0 ] ratio MV E/A 2.2 [ 0.8 - 1.5 ] ratio TR Peak Yash 2.5 [ 100.0 - 280.0 ] cm/sec TR Peak PG 24.0 mmHg RVSP 34.0 [ 10.0 - 36.0 ] mmHg RA Pressure 10.0 mmHg Findings: Left Ventricle: Lower limits of normal systolic function. Normal left ventricular cavity size. Mild concentric left ventricular hypertrophy. Ejection fraction is visually estimated at 50 %. Abnormal Diastolic Function. Right Ventricle: Normal right ventricular size. Normal right ventricular systolic function. Left Atrium: There is mild enlargement of left atrium. Right Atrium: The right atrium is normal in size. Mitral Valve: Mitral valve leaflets appear moderately thickened. Mild mitral annular calcification. Moderate mitral valve regurgitation. Aortic Valve: Normal appearance of the aortic valve. No significant aortic stenosis or insufficiency. Aortic valve Max velocity 2.10 m/sec. Max PG 16.00 mmHg. Mean PG 8.00 mmHg. Aortic sclerosis without significant stenosis. Trace aortic valve regurgitation. Tricuspid Valve: Normal appearance of the tricuspid valve. The estimated Peak RVSP is 34 mmHg. There is trace tricuspid regurgitation. Pulmonic Valve: Pulmonic valve not well visualized. Pericardium: Small pericardial effusion. Aorta: Normal aortic root. IVC: Dilated IVC without respiratory collapse consistent with elevated right atrial pressure. Conclusions: Lower limits of normal systolic function. Normal left ventricular cavity size. Mild concentric left ventricular hypertrophy. Ejection fraction is visually estimated at 50 %. Abnormal Diastolic Function. Mitral valve leaflets appear moderately thickened. Mild mitral annular calcification. Moderate mitral valve regurgitation. Normal appearance of the aortic valve. No significant aortic stenosis or insufficiency. Aortic valve Max velocity 2.10 m/sec. Max PG 16.00 mmHg. Mean PG 8.00 mmHg. Aortic sclerosis without significant stenosis. Trace aortic valve regurgitation. Normal appearance of the tricuspid valve. The estimated Peak RVSP is 34 mmHg. There is trace tricuspid regurgitation. Small pericardial effusion. Electronically Signed By: Dustin Sanchez 2018-10-04 15:26:04 PDT
[2018-10-04] MEDS: ATORVASTATIN 20 MG TAB PO SCH (20:47)
[2018-10-05] VITALS (13 sets, daily range): BP systolic 117–141; BP diastolic 62–84; PULSE 71–82; RESP 16–20
[2018-10-05] MEDS: HEPARIN 5,000 UNIT/1 ML VIAL SC SCH ×3 (06:06→21:15)
--- NOTE | 2018-10-05 06:25 | PN ---
DATE: 10/04/2018 SUBJECTIVE: The patient is stable this morning, awake, alert, comfortable, in no respiratory distres s, pending hemodialysis. PHYSICAL EXAMINATION: VITAL SIGNS: Temperature 98, pulse 79, blood pressure 130/74, O2 saturation 94% on room air. NECK: Supple. No JVD or lymphadenopathy. CARDIAC: S1, S2. No added sounds or murmurs. CHEST: Diminished air entry bilaterally with few rales. ABDOMEN: Soft, nontender. No guarding, rebound. EXTREMITIES: No cyanosis, clubbing or edema. NEUROLOGIC: Grossly intact. No focal deficits. LABORATORY DATA: White count 14.1, hemoglobin 9.4, platelets of 104. BUN 83, creatinine 15.33. Tro ponin is mildly elevated at 0.123. DIAGNOSTIC DATA: EKG showed no acute ischemic changes. Chest x-ray was reviewed, which showed pulmo nary edema and demonstrates cardiomegaly. IMPRESSION AND PLAN: 1. Possible community-acquired pneumonia. 2. Volume overload. 3. End-stage renal failure on hemodialysis. 4. Cardiomegaly with likely type 2 non-ST elevation myocardial infarction. The patient will require: 1. Continue hemodialysis with volume removal. 2. Antibiotics. 3. Echocardiogram and cardiology evaluation. 4. DVT and GI prophylaxis. Dictated By: BE FIELD MD SV/HAILEE Conf#: [id number] DID#: [id number] CC: JOSI CHIRINOS MD; TOBIAS PELLETIER MD;*EndCC*
--- NOTE | 2018-10-05 08:09 | CONS ---
Consult Date/Type/Reason Admit Date/Time October 03, 2018 at 23:26 Initial Consult Date 10/04/18 Type of Consultation: cv Requesting Provider: TOBIAS PELLETIER Date/Time of Note DATE: 10/05/18 TIME: 08:07 Subjective Interventional cardiology follow-up progress note Subjective: Discussed with the staff telemetry was reviewed patient remains sinus rhythm No chest pain or pressure now. Has had mild episodes of left-sided sharp chest pain Blood pressure is much better he is feeling better breathing better Objective: General: no acute distress HEENT: NC/AT. pupils are equal. round. NECK: NO JVD. no stridor. CV: RRR. systolic murmur; no gallop or rubs. PULM:+ Left lower lobe rhonchi. GI: SOFT, NT, ND, no rebound or guarding Extremity: trace B/L LE edema. no clubbing. neuro: awake and alert, OX3. Psych: calm and pleasant rectal: deferred : normal EKG is not done yet Chest x-ray shows: Cardiomegaly is seen with mild vascular congestion. Patchy consolidation of the left mid lung could represent pneumonia EKG was personally reviewed showed normal sinus rhythm. Nonspecific T wave abnormalities Echocardiogram was personally reviewed shows: Lower limits of normal systolic function. Normal left ventricular cavity size. Mild concentric left ventricular hypertrophy. Ejection fraction is visually estimated at 50 %. Abnormal Diastolic Function. Mitral valve leaflets appear moderately thickened. Mild mitral annular calcification. Moderate mitral valve regurgitation. Normal appearance of the aortic valve. No significant aortic stenosis or insufficiency. Aortic valve Max velocity 2.10 m/sec. Max PG 16.00 mmHg. Mean PG 8.00 mmHg. Aortic sclerosis without significant stenosis. Trace aortic valve regurgitation. Normal appearance of the tricuspid valve. The estimated Peak RVSP is 34 mmHg. There is trace tricuspid regurgitation. Small pericardial effusion. Objective Vitals Vital Signs Date Temp Pulse Resp B/P (MAP) Pulse Ox O2 O2 Flow FiO2 Time Delivery Rate 10/05/18 98.2 80 20 122/66 90 07:03 (84) 10/04/18 Room Air 15:19 Intake and Output 10/04/18 10/04/18 10/05/18 1515:00 23:00 07:00 IntakeIntake Total 300 ml OutputOutput Total 200 ml 2400 ml BalanceBalance -200 ml -2400 ml 300 ml Results/Medications Result Diagram: 10/05/18 0503 10/05/18 0502 Results 24 hrs Laboratory Tests Test 10/05/18 04:58 10/05/18 05:02 10/05/18 05:03 Creatine Kinase 24 Creatine Kinase Index 0.9 Creatinine Kinase MB (Mass) < 0.22 Troponin I 0.068 Sodium Level 140 Potassium Level 4.0 Chloride Level 101 Carbon Dioxide Level 28 Anion Gap 11 Blood Urea Nitrogen 51 #H Creatinine 9.76 #H Est Glomerular Filtrat Rate mL/min 6 L Glucose Level 94 Calcium Level 8.7 Total Bilirubin 0.2 Direct Bilirubin 0.00 Indirect Bilirubin 0.2 Aspartate Amino Transf (AST/SGOT) 13 L Alanine Aminotransferase (ALT/SGPT) 30 Alkaline Phosphatase 60 Total Protein 5.6 L Albumin 3.3 Globulin 2.30 Albumin/Globulin Ratio 1.43 Random Vancomycin Level 15.4 White Blood Count 10.4 # Red Blood Count 3.47 L Hemoglobin 9.7 L Hematocrit 29.9 L Mean Corpuscular Volume 86.2 Mean Corpuscular Hemoglobin 28.0 L Mean Corpuscular Hemoglobin Concent 32.4 Red Cell Distribution Width 15.7 H Platelet Count 176 # Mean Platelet Volume 11.1 H Immature Granulocytes % 0.500 H Neutrophils % 69.7 Lymphocytes % 15.7 Monocytes % 9.8 Eosinophils % 4.0 Basophils % 0.3 Nucleated Red Blood Cells % 0.0 Immature Granulocytes # 0.050 H Neutrophils # 7.3 Lymphocytes # 1.6 Monocytes # 1.0 H Eosinophils # 0.4 Basophils # 0.0 Nucleated Red Blood Cells # 0.0 Triglycerides Level 81 Cholesterol Level 82 L LDL Cholesterol, Calculated 36 HDL Cholesterol 30 Cholesterol/HDL Ratio 2.7 Home Meds Active Scripts Atorvastatin Calcium* (Atorvastatin Calcium*) 20 Mg Tablet, 20 MG PO QHS, #30 TAB Prov:YASMEENBREE . 06/20/15 Aspirin* (Aspirin* (EC)) 81 Mg Tablet.dr, 81 MG PO DAILY for 30 Days, TAB Prov:BREE ARANA . 06/20/15 Multivit/Ca Carb/B Cmplx/Fa* (Tara-Henna*) 1 Tab Tab, 1 TAB PO DAILY for 30 Days, TAB Prov:YASMEENBREE . 2/10/16 Nifedipine* (Procardia XL*) 60 Mg Tabsr, 60 MG PO BID for 30 Days, TAB Prov:BREE ARANA M. 06/19/15 Metoprolol Tartrate* (Lopressor*) 100 Mg Tab, 100 MG PO BID for 30 Days, TAB Prov:BREE ARANA M. 06/19/15 Medications Current Medications Vancomycin HCl (Vanco Iv Per Pharmacy) VANCOMYCIN PER PHARMACY PER PROTOCOL XX ; Start 10/03/18 at 21:00 IV Flush (NS 3 ml) 3 ml PER PROTOCOL IV ; Start 10/03/18 at 21:00 Ondansetron HCl (Zofran Inj) 4 mg Q6H PRN IV NAUSEA/VOMITING; Start 10/03/18 at 21:00 Acetaminophen (Tylenol Tab) 650 mg Q6H PRN PO .PAIN 1-3 OR TEMP; Start 10/03/18 at 21:00 Docusate Sodium (Colace) 100 mg Q12H PRN PO .CONSTIPATION; Start 10/03/18 at 21:00 Bisacodyl (Dulcolax) 5 mg DAILY PRN PO .CONSTIPATION; Start 10/03/18 at 21:00 Heparin Sodium (Porcine) (Heparin (5000 Units/1ml)) 5,000 unit Q8 SC Last administered on 10/05/18at 06:06; Admin Dose 5,000 UNIT; Start 10/03/18 at 22:00 Morphine Sulfate (morphine) 1 mg Q4H PRN IV .PAIN 7-10 Last administered on 10/04/18at 05:26; Admin Dose 1 MG; Start 10/04/18 at 01:00 Aspirin (Halfprin) 81 mg DAILY PO Last administered on 10/04/18at 08:17; Admin Dose 81 MG; Start 10/04/18 at 09:00 Atorvastatin Calcium (Lipitor) 20 mg QHS PO Last administered on 10/04/18 20:47; Admin Dose 20 MG; Start 10/04/18 at 21:00 Metoprolol Tartrate (Lopressor) 100 mg BID PO Last administered on 10/04/18at 20:47; Admin Dose 100 MG; Start 10/03/18 at 23:30 Multivit/Ca Carb/ B Cmplx/FA/Prenat (Tara-Henna) 1 tab DAILY PO Last administered on 5/28/19at 08:16; Admin Dose 1 TAB; Start 10/04/18 at 09:00 Nifedipine (Procardia Xl) 60 mg BID PO Last administered on 10/04/18at 20:47; Admin Dose 60 MG; Start 10/03/18 at 23:30 Miscellaneous Information Patients own medicat... BID@10,16 XX ; Start 10/04/18 at 10:00 Piperacillin Sod/ Tazobactam Sod 50 ml @ 100 mls/hr Q12 IVPB Last administered on 10/04/18at 20:47; Admin Dose 100 MLS/HR; Start 10/04/18 at 21:00 Assessment/Plan Hospital Course (Demo Recall) 1. Mildly abnormal troponin most likely secondary to below. Rule out acute [place] 2. Pneumonia 3. Renal failure on dialysis 4. Hypertension 5. Pleuritic chest pain most likely secondary to his pneumonia Recommendations: EKG and echocardiogram has been reviewed Antibiotic management as per internal medicine Hemodialysis as per renal Continue with blood pressure control We will order CT coronary angiogram to rule out significant obstructive coronary artery disease. Otherwise continue with medical therapy Thank you for his referral. We will continue to follow along with you ELSA SHAH MD [facility] ELSA SHAH MD October 05, 2018 08:09
[2018-10-05] MEDS: METOPROLOL 100 MG TAB PO SCH ×2 (09:34→21:01)
[2018-10-05] MEDS: ASPIRIN (EC) 81 MG TAB PO SCH (09:34)
[2018-10-05] MEDS: MULTIVIT/CA CARB/B CMPLX/FA TAB PO SCH (09:34)
[2018-10-05] MEDS: PIPER-TAZO 2.25 GM (PMX) 50 ML IVPB SCH ×2 (09:35→20:53)
[2018-10-05] MEDS: NIFEdipine (XL) 60 MG TAB PO SCH ×2 (09:35→21:01)
--- NOTE | 2018-10-05 10:45 | PN ---
Date/Time of Note Date/Time of Note DATE: 10/05/18 TIME: 10:45 Assessment/Plan VTE Prophylaxis Risk score (from Nsg)>0 risk: 1 SCD applied (from Nsg): Yes Pharmacological prophylaxis: heparin Lines/Catheters IV Catheter Type (from Nrs): Saline Lock Assessment/Plan Hospital Course SUBJECTIVE: Patient sitting up in chair. Complaining of left-sided chest pain, improved from before. No fevers, nausea, vomiting, palpitation, abdominal pain. OBJECTIVE: Vital signs-see below PHYSICAL EXAM: Constitutional: Adequately built,not in acute distress. HEENT: Head atraumatic and normocephalic. Eyes: Extraocular muscles intact. Anicteric sclerae. Pupils equal bilaterally, reactive to light. NECK: Supple without lymph node. CHEST: Clear and good breath sounds equally. No wheezing. No rhonchi. HEART: S1, S2. Regular rate and rhythm. ABDOMEN: Soft/non tender with no rebound tenderness. Bowel sounds were present. EXTREMITIES: No cyanosis, clubbing or edema. NEUROLOGIC: Alert and oriented x3. No focal deficit. No sensory deficit. PSYCHOSOCIAL: No signs of depression. INTEGUMENTARY: No open wounds. ASSESSMENT AND PLAN:38 yo M w/ESRD/HD TTS, hlp, here w/chest pain/coughx3 days.. Possible community-acquired pneumonia. -Clinically improving -Continue antibiotics Atypical chest pain/?NSTEMI -With mild troponin leak-now resolved -Plan is for CT coronary angiography -Continue aspirin -Follow cardiac recommendations Volume overload with ESRD -UF per renal team Diastolic dysfunction -Preserved ejection fraction -on BB -UF for volume optimization End-stage renal failure/HD TTS -Management per nephrology Anemia of ESRD -Patient is stable -Epogen per nephrology as needed Dyslipidemia -On statin HTN -Stable -BB/CCB DVT prophylaxis: Heparin Disposition: Patient is for CT coronary ngiography today. Follow renal/cards recs. Patient was seen inc ollaboration w/ Result Diagram: 10/05/18 0503 10/05/18 0502 Results 24hrs Laboratory Tests Test 10/05/18 04:58 10/05/18 05:02 10/05/18 05:03 Creatine Kinase 24 Creatine Kinase Index 0.9 Creatinine Kinase MB (Mass) < 0.22 Troponin I 0.068 Sodium Level 140 Potassium Level 4.0 Chloride Level 101 Carbon Dioxide Level 28 Anion Gap 11 Blood Urea Nitrogen 51 #H Creatinine 9.76 #H Est Glomerular Filtrat Rate mL/min 6 L Glucose Level 94 Calcium Level 8.7 Total Bilirubin 0.2 Direct Bilirubin 0.00 Indirect Bilirubin 0.2 Aspartate Amino Transf (AST/SGOT) 13 L Alanine Aminotransferase (ALT/SGPT) 30 Alkaline Phosphatase 60 Total Protein 5.6 L Albumin 3.3 Globulin 2.30 Albumin/Globulin Ratio 1.43 Random Vancomycin Level 15.4 White Blood Count 10.4 # Red Blood Count 3.47 L Hemoglobin 9.7 L Hematocrit 29.9 L Mean Corpuscular Volume 86.2 Mean Corpuscular Hemoglobin 28.0 L Mean Corpuscular Hemoglobin Concent 32.4 Red Cell Distribution Width 15.7 H Platelet Count 176 # Mean Platelet Volume 11.1 H Immature Granulocytes % 0.500 H Neutrophils % 69.7 Lymphocytes % 15.7 Monocytes % 9.8 Eosinophils % 4.0 Basophils % 0.3 Nucleated Red Blood Cells % 0.0 Immature Granulocytes # 0.050 H Neutrophils # 7.3 Lymphocytes # 1.6 Monocytes # 1.0 H Eosinophils # 0.4 Basophils # 0.0 Nucleated Red Blood Cells # 0.0 Triglycerides Level 81 Cholesterol Level 82 L LDL Cholesterol, Calculated 36 HDL Cholesterol 30 Cholesterol/HDL Ratio 2.7 Exam/Review of Systems Exam Vitals Vital Signs Date Temp Pulse Resp B/P (MAP) Pulse Ox O2 O2 Flow FiO2 Time Delivery Rate 10/05/18 82 08:21 10/05/18 98.2 20 122/66 90 07:03 (84) 10/04/18 Room Air 15:19 Intake and Output 10/04/18 10/04/18 10/05/18 1515:00 23:00 07:00 IntakeIntake Total 300 ml OutputOutput Total 200 ml 2400 ml BalanceBalance -200 ml -2400 ml 300 ml Results Results 24hrs Laboratory Tests Test 10/05/18 04:58 10/05/18 05:02 10/05/18 05:03 Creatine Kinase 24 Creatine Kinase Index 0.9 Creatinine Kinase MB (Mass) < 0.22 Troponin I 0.068 Sodium Level 140 Potassium Level 4.0 Chloride Level 101 Carbon Dioxide Level 28 Anion Gap 11 Blood Urea Nitrogen 51 #H Creatinine 9.76 #H Est Glomerular Filtrat Rate mL/min 6 L Glucose Level 94 Calcium Level 8.7 Total Bilirubin 0.2 Direct Bilirubin 0.00 Indirect Bilirubin 0.2 Aspartate Amino Transf (AST/SGOT) 13 L Alanine Aminotransferase (ALT/SGPT) 30 Alkaline Phosphatase 60 Total Protein 5.6 L Albumin 3.3 Globulin 2.30 Albumin/Globulin Ratio 1.43 Random Vancomycin Level 15.4 White Blood Count 10.4 # Red Blood Count 3.47 L Hemoglobin 9.7 L Hematocrit 29.9 L Mean Corpuscular Volume 86.2 Mean Corpuscular Hemoglobin 28.0 L Mean Corpuscular Hemoglobin Concent 32.4 Red Cell Distribution Width 15.7 H Platelet Count 176 # Mean Platelet Volume 11.1 H Immature Granulocytes % 0.500 H Neutrophils % 69.7 Lymphocytes % 15.7 Monocytes % 9.8 Eosinophils % 4.0 Basophils % 0.3 Nucleated Red Blood Cells % 0.0 Immature Granulocytes # 0.050 H Neutrophils # 7.3 Lymphocytes # 1.6 Monocytes # 1.0 H Eosinophils # 0.4 Basophils # 0.0 Nucleated Red Blood Cells # 0.0 Triglycerides Level 81 Cholesterol Level 82 L LDL Cholesterol, Calculated 36 HDL Cholesterol 30 Cholesterol/HDL Ratio 2.7 Medications Medication Current Medications Vancomycin HCl (Vanco Iv Per Pharmacy) VANCOMYCIN PER PHARMACY PER PROTOCOL XX ; Start 10/03/18 at 21:00 IV Flush (NS 3 ml) 3 ml PER PROTOCOL IV ; Start 10/03/18 at 21:00 Ondansetron HCl (Zofran Inj) 4 mg Q6H PRN IV NAUSEA/VOMITING; Start 10/03/18 at 21:00 Acetaminophen (Tylenol Tab) 650 mg Q6H PRN PO .PAIN 1-3 OR TEMP; Start 10/03/18 at 21:00 Docusate Sodium (Colace) 100 mg Q12H PRN PO .CONSTIPATION; Start 10/03/18 at 21:00 Bisacodyl (Dulcolax) 5 mg DAILY PRN PO .CONSTIPATION; Start 10/03/18 at 21:00 Heparin Sodium (Porcine) (Heparin (5000 Units/1ml)) 5,000 unit Q8 SC Last administered on 10/05/18at 06:06; Admin Dose 5,000 UNIT; Start 10/03/18 at 22:00 Morphine Sulfate (morphine) 1 mg Q4H PRN IV .PAIN 7-10 Last administered on 10/04/18 05:26; Admin Dose 1 MG; Start 10/04/18 at 01:00 Aspirin (Halfprin) 81 mg DAILY PO Last administered on 10/05/18 09:34; Admin Dose 81 MG; Start 10/04/18 at 09:00 Atorvastatin Calcium (Lipitor) 20 mg QHS PO Last administered on 10/04/18 20:47; Admin Dose 20 MG; Start 10/04/18 at 21:00 Metoprolol Tartrate (Lopressor) 100 mg BID PO Last administered on 10/05/18 09:34; Admin Dose 100 MG; Start 10/03/18 at 23:30 Multivit/Ca Carb/ B Cmplx/FA/Prenat (Tara-Henna) 1 tab DAILY PO Last administered on 10/05/18 09:34; Admin Dose 1 TAB; Start 10/04/18 at 09:00 Nifedipine (Procardia Xl) 60 mg BID PO Last administered on 10/05/18 09:35; Admin Dose 60 MG; Start 10/03/18 at 23:30 Miscellaneous Information Patients own medicat... BID@10,16 XX ; Start 10/04/18 at 10:00 Piperacillin Sod/ Tazobactam Sod 50 ml @ 100 mls/hr Q12 IVPB Last administered on 10/05/18 09:35; Admin Dose 100 MLS/HR; Start 10/04/18 at 21:00 MELISSA CAIN NP October 05, 2018 10:45
[2018-10-05] MEDS ORDERED: VANCOMYCIN 1 GM 250 ML IVPB ONE (18:00)
[2018-10-05] MEDS: ATORVASTATIN 20 MG TAB PO SCH (21:01)
[2018-10-06] VITALS (26 sets, daily range): BP systolic 130–179; BP diastolic 66–107; PULSE 65–88; RESP 18–20
[2018-10-06] MEDS: HEPARIN 5,000 UNIT/1 ML VIAL SC SCH ×3 (06:37→22:38)
--- NOTE | 2018-10-06 08:17 | CONS ---
Consult Date/Type/Reason Admit Date/Time October 03, 2018 at 23:26 Initial Consult Date 10/04/18 Type of Consultation: cv Requesting Provider: TOBIAS PELLETIER Date/Time of Note DATE: 10/06/18 TIME: 08:16 Subjective Interventional cardiology follow-up progress note Subjective: Discussed with the staff telemetry was reviewed patient remains sinus rhythm No chest pain or pressure now. Blood pressure is much better he is feeling better breathing better CT coronary angiogram was ordered ready yesterday however could not be done due to history scheduling of the CT scan/radiology apparently Objective: General: no acute distress HEENT: NC/AT. pupils are equal. round. NECK: NO JVD. no stridor. CV: RRR. systolic murmur; no gallop or rubs. PULM:+ Left lower lobe rhonchi. GI: SOFT, NT, ND, no rebound or guarding Extremity: trace B/L LE edema. no clubbing. neuro: awake and alert, OX3. Psych: calm and pleasant rectal: deferred : normal EKG is not done yet Chest x-ray shows: Cardiomegaly is seen with mild vascular congestion. Patchy consolidation of the left mid lung could represent pneumonia EKG was personally reviewed showed normal sinus rhythm. Nonspecific T wave abnormalities Echocardiogram was personally reviewed shows: Lower limits of normal systolic function. Normal left ventricular cavity size. Mild concentric left ventricular hypertrophy. Ejection fraction is visually estimated at 50 %. Abnormal Diastolic Function. Mitral valve leaflets appear moderately thickened. Mild mitral annular calcification. Moderate mitral valve regurgitation. Normal appearance of the aortic valve. No significant aortic stenosis or insufficiency. Aortic valve Max velocity 2.10 m/sec. Max PG 16.00 mmHg. Mean PG 8.00 mmHg. Aortic sclerosis without significant stenosis. Trace aortic valve regurgitation. Normal appearance of the tricuspid valve. The estimated Peak RVSP is 34 mmHg. There is trace tricuspid regurgitation. Small pericardial effusion. Objective Vitals Vital Signs Date Temp Pulse Resp B/P (MAP) Pulse Ox O2 O2 Flow FiO2 Time Delivery Rate 10/06/18 97.9 88 18 152/92 95 07:18 (112) 10/04/18 Room Air 15:19 Intake and Output 10/05/18 10/05/18 10/06/18 1515:00 23:00 07:00 IntakeIntake Total 1600 ml 350 ml BalanceBalance 1600 ml 350 ml Results/Medications Result Diagram: 10/06/18 0509 10/06/18 0509 Results 24 hrs Laboratory Tests Test 10/06/18 05:09 White Blood Count 7.4 # Red Blood Count 3.55 L Hemoglobin 9.8 L Hematocrit 30.8 L Mean Corpuscular Volume 86.8 Mean Corpuscular Hemoglobin 27.6 L Mean Corpuscular Hemoglobin Concent 31.8 L Red Cell Distribution Width 15.5 H Platelet Count 214 # Mean Platelet Volume 11.0 H Immature Granulocytes % 0.400 Neutrophils % 62.8 Lymphocytes % 20.0 Monocytes % 9.4 Eosinophils % 6.9 Basophils % 0.5 Nucleated Red Blood Cells % 0.0 Immature Granulocytes # 0.030 Neutrophils # 4.7 Lymphocytes # 1.5 Monocytes # 0.7 Eosinophils # 0.5 Basophils # 0.0 Nucleated Red Blood Cells # 0.0 Sodium Level 142 Potassium Level 4.0 Chloride Level 102 Carbon Dioxide Level 25 Anion Gap 15 H Blood Urea Nitrogen 71 H Creatinine 12.55 #H Est Glomerular Filtrat Rate mL/min 5 L Glucose Level 86 Calcium Level 8.7 Total Bilirubin 0.2 Direct Bilirubin 0.00 Indirect Bilirubin 0.2 Aspartate Amino Transf (AST/SGOT) 26 # Alanine Aminotransferase (ALT/SGPT) 37 Alkaline Phosphatase 78 Total Protein 6.2 Albumin 3.6 Globulin 2.60 Albumin/Globulin Ratio 1.38 Home Meds Active Scripts Atorvastatin Calcium* (Atorvastatin Calcium*) 20 Mg Tablet, 20 MG PO QHS, #30 TAB Prov:BREE RAANA . 06/20/15 Aspirin* (Aspirin* (EC)) 81 Mg Tablet.dr, 81 MG PO DAILY for 30 Days, TAB Prov:BREE ARANA . 06/20/15 Multivit/Ca Carb/B Cmplx/Fa* (Tara-Henna*) 1 Tab Tab, 1 TAB PO DAILY for 30 Days, TAB Prov:BREE ARANA . 06/19/15 Nifedipine* (Procardia XL*) 60 Mg Tabsr, 60 MG PO BID for 30 Days, TAB Prov:YASMEENBREE . 06/19/15 Metoprolol Tartrate* (Lopressor*) 100 Mg Tab, 100 MG PO BID for 30 Days, TAB Prov:BREE ARANA . 06/19/15 Medications Current Medications Vancomycin HCl (Vanco Iv Per Pharmacy) VANCOMYCIN PER PHARMACY PER PROTOCOL XX ; Start 10/03/18 at 21:00 IV Flush (NS 3 ml) 3 ml PER PROTOCOL IV ; Start 10/03/18 at 21:00 Ondansetron HCl (Zofran Inj) 4 mg Q6H PRN IV NAUSEA/VOMITING; Start 10/03/18 at 21:00 Acetaminophen (Tylenol Tab) 650 mg Q6H PRN PO .PAIN 1-3 OR TEMP; Start 10/03/18 at 21:00 Docusate Sodium (Colace) 100 mg Q12H PRN PO .CONSTIPATION; Start 10/03/18 at 21:00 Bisacodyl (Dulcolax) 5 mg DAILY PRN PO .CONSTIPATION; Start 10/03/18 at 21:00 Heparin Sodium (Porcine) (Heparin (5000 Units/1ml)) 5,000 unit Q8 SC Last administered on 10/06/18 06:37; Admin Dose 5,000 UNIT; Start 10/03/18 at 22:00 Morphine Sulfate (morphine) 1 mg Q4H PRN IV .PAIN 7-10 Last administered on 09/08 05:26; Admin Dose 1 MG; Start 10/04/18 at 01:00 Aspirin (Halfprin) 81 mg DAILY PO Last administered on 10/05/18 09:34; Admin Dose 81 MG; Start 10/04/18 at 09:00 Atorvastatin Calcium (Lipitor) 20 mg QHS PO Last administered on 10/05/18 21:01; Admin Dose 20 MG; Start 10/04/18 at 21:00 Metoprolol Tartrate (Lopressor) 100 mg BID PO Last administered on 10/05/18 21:01; Admin Dose 100 MG; Start 10/03/18 at 23:30 Multivit/Ca Carb/ B Cmplx/FA/Prenat (Tara-Henna) 1 tab DAILY PO Last administ ered on 10/05/18 09:34; Admin Dose 1 TAB; Start 10/04/18 at 09:00 Nifedipine (Procardia Xl) 60 mg BID PO Last administered on 10/05/18 21:01; Admin Dose 60 MG; Start 10/03/18 at 23:30 Miscellaneous Information Patients own medicat... BID@10,16 XX ; Start 10/04/18 at 10:00 Piperacillin Sod/ Tazobactam Sod 50 ml @ 100 mls/hr Q12 IVPB Last administered on 10/05/18at 20:53; Admin Dose 100 MLS/HR; Start 10/04/18 at 21:00 Assessment/Plan Hospital Course (Demo Recall) 1. Mildly abnormal troponin most likely secondary to below. Rule out acute VA 2. Pneumonia 3. Renal failure on dialysis 4. Hypertension 5. Pleuritic chest pain most likely secondary to his pneumonia Recommendations: EKG and echocardiogram has been reviewed Antibiotic management as per internal medicine Hemodialysis as per renal Continue with blood pressure control Awaiting CT coronary angiogram to rule out significant obstructive coronary artery disease. We will give 1 dose of corlanor to try to keep patient bradycardic. otherwise continue with medical therapy Thank you for his referral. We will continue to follow along with you ELSA SHAH MD MERGED WITH [facility] ELSA SHAH MD October 06, 2018 08:17
[2018-10-06] MEDS: PIPER-TAZO 2.25 GM (PMX) 50 ML IVPB SCH ×2 (08:26→22:27)
[2018-10-06] MEDS: MULTIVIT/CA CARB/B CMPLX/FA TAB PO SCH (08:33)
[2018-10-06] MEDS: ASPIRIN (EC) 81 MG TAB PO SCH (08:34)
[2018-10-06] MEDS: METOPROLOL 100 MG TAB PO SCH ×2 (08:34→22:28)
[2018-10-06] MEDS: NIFEdipine (XL) 60 MG TAB PO SCH ×2 (08:34→22:28)
[2018-10-06] MEDS ORDERED: IVABRADINE HCL 5 MG TABLET PO ONE (09:00)
[2018-10-06] MEDS ORDERED: SOD CHLORIDE 0.9% 100 ML ONE (09:45)
[2018-10-06] MEDS ORDERED: IOHEXOL 100 ML ONE (09:45)
[2018-10-06] MEDS ORDERED: IODIXANOL LOCM 100 ML BTL ONE (09:51)
[2018-10-06] MEDS ORDERED: NITROGLYCERIN AEROSOL (4.9 GM) ONE (09:55)
--- NOTE | 2018-10-06 10:46 | CONS ---
Assessment/Plan Assessment/Plan Assessment/Plan (Daily) - [facility] [place] Hypertension - Anemia of Chronic Disease - Angina / Chest pain - Elevated WBC / PNA - Hyperphosphatemia - High Cholesterol PLAN: - Observing on Tele Monitoring - Follow up with serial troponin - IV Antibiotics - Will plan for Dialysis today ( [facility] [place] [facility] - Blood Cultures on Dialysis as well - On Long Acting "EPO" as out patient - Follow up with [facility]. - Bedside Dialysis - Cardiology following - Portia pinzon with [facility] Consultation Date/Type/Reason Admit Date/Time October 03, 2018 at 23:26 Initial Consult Date 10/04/18 Type of Consult - Nephrology Requesting Provider: TOBIAS PELLETIER Date/Time of Note DATE: 10/06/18 TIME: 10:45 24 HR Interval Summary Constitutional: no complaints, improved Exam/Review of Systems Exam Vitals Vital Signs Date Temp Pulse Resp B/P (MAP) Pulse Ox O2 O2 Flow FiO2 Time Delivery Rate 10/06/18 85 08:16 10/06/18 97.9 18 152/92 95 07:18 (112) 10/04/18 Room Air 15:19 Intake and Output 10/05/18 10/05/18 10/06/18 1515:00 23:00 07:00 IntakeIntake Total 1600 ml 350 ml BalanceBalance 1600 ml 350 ml Constitutional: alert, oriented, well developed Psych: no complaints Respiratory: crackles/rales Cardiovascular: regular rate and rhythm, systolic murmur Gastrointestinal: soft Results Result Diagram: 10/06/18 0509 10/06/18 0509 Results 24hrs Laboratory Tests Test 10/06/18 05:09 White Blood Count 7.4 # Red Blood Count 3.55 L Hemoglobin 9.8 L Hematocrit 30.8 L Mean Corpuscular Volume 86.8 Mean Corpuscular Hemoglobin 27.6 L Mean Corpuscular Hemoglobin Concent 31.8 L Red Cell Distribution Width 15.5 H Platelet Count 214 # Mean Platelet Volume 11.0 H Immature Granulocytes % 0.400 Neutrophils % 62.8 Lymphocytes % 20.0 Monocytes % 9.4 Eosinophils % 6.9 Basophils % 0.5 Nucleated Red Blood Cells % 0.0 Immature Granulocytes # 0.030 Neutrophils # 4.7 Lymphocytes # 1.5 Monocytes # 0.7 Eosinophils # 0.5 Basophils # 0.0 Nucleated Red Blood Cells # 0.0 Sodium Level 142 Potassium Level 4.0 Chloride Level 102 Carbon Dioxide Level 25 Anion Gap 15 H Blood Urea Nitrogen 71 H Creatinine 12.55 #H Est Glomerular Filtrat Rate mL/min 5 L Glucose Level 86 Calcium Level 8.7 Total Bilirubin 0.2 Direct Bilirubin 0.00 Indirect Bilirubin 0.2 Aspartate Amino Transf (AST/SGOT) 26 # Alanine Aminotransferase (ALT/SGPT) 37 Alkaline Phosphatase 78 Total Protein 6.2 Albumin 3.6 Globulin 2.60 Albumin/Globulin Ratio 1.38 Medications Medication Current Medications Vancomycin HCl (Vanco Iv Per Pharmacy) VANCOMYCIN PER PHARMACY PER PROTOCOL XX ; Start 10/03/18 at 21:00 IV Flush (NS 3 ml) 3 ml PER PROTOCOL IV ; Start 10/03/18 at 21:00 Ondansetron HCl (Zofran Inj) 4 mg Q6H PRN IV NAUSEA/VOMITING; Start 10/03/18 at 21:00 Acetaminophen (Tylenol Tab) 650 mg Q6H PRN PO .PAIN 1-3 OR TEMP; Start 10/03/18 at 21:00 Docusate Sodium (Colace) 100 mg Q12H PRN PO .CONSTIPATION; Start 10/03/18 at 21:00 Bisacodyl (Dulcolax) 5 mg DAILY PRN PO .CONSTIPATION; Start 10/03/18 at 21:00 Heparin Sodium (Porcine) (Heparin (5000 Units/1ml)) 5,000 unit Q8 SC Last administered on 10/06/18at 06:37; Admin Dose 5,000 UNIT; Start 10/03/18 at 22:00 Morphine Sulfate (morphine) 1 mg Q4H PRN IV .PAIN 7-10 Last administered on 10/04/18at 05:26; Admin Dose 1 MG; Start 10/04/18 at 01:00 Aspirin (Halfprin) 81 mg DAILY PO Last administered on 10/06/18 08:34; Admin Dose 81 MG; Start 10/04/18 at 09:00 Atorvastatin Calcium (Lipitor) 20 mg QHS PO Last administered on 10/05/18 21:01; Admin Dose 20 MG; Start 10/04/18 at 21:00 Metoprolol Tartrate (Lopressor) 100 mg BID PO Last administered on 10/06/18 08:34; Admin Dose 100 MG; Start 10/03/18 at 23:30 Multivit/Ca Carb/ B Cmplx/FA/Prenat (Tara-Henna) 1 tab DAILY PO Last administered on 10/06/18 08:33; Admin Dose 1 TAB; Start 10/04/18 at 09:00 Nifedipine (Procardia Xl) 60 mg BID PO Last administered on 10/06/18 08:34; Admin Dose 60 MG; Start 10/03/18 at 23:30 Miscellaneous Information Patients own medicat... BID@10,16 XX ; Start 10/04/18 at 10:00 Piperacillin Sod/ Tazobactam Sod 50 ml @ 100 mls/hr Q12 IVPB Last administered on 10/06/18 08:26; Admin Dose 100 MLS/HR; Start 10/04/18 at 21:00 JOSI CHIRINOS MD October 06, 2018 10:46
[2018-10-06] MEDS ORDERED: IVABRADINE HCL 5 MG TABLET PO SCH (11:00)
--- NOTE | 2018-10-06 12:28 | PN ---
Date/Time of Note Date/Time of Note DATE: 10/06/18 TIME: 12:26 Assessment/Plan VTE Prophylaxis Risk score (from Ns)>0 risk: 1 SCD applied (from Ns): Yes Pharmacological prophylaxis: heparin Lines/Catheters IV [facility]from [facility] Saline Lock Assessment/Plan Hospital Course SUBJECTIVE: No acute distress. OBJECTIVE: Vital signs-see below PHYSICAL EXAM: Constitutional: Adequately built,not in acute distress. HEENT: Head atraumatic and normocephalic. Eyes: Extraocular muscles intact. Anicteric sclerae. Pupils equal bilaterally, reactive to light. NECK: Supple without lymph node. CHEST: Clear and good breath sounds equally. No wheezing. No rhonchi. HEART: S1, S2. Regular rate and rhythm. ABDOMEN: Soft/non tender with no rebound tenderness. Bowel sounds were present. EXTREMITIES: No cyanosis, clubbing or edema. NEUROLOGIC: Alert and oriented x3. No focal deficit. No sensory deficit. PSYCHOSOCIAL: No signs of depression. INTEGUMENTARY: No open wounds. ASSESSMENT AND PLAN:38 yo M w/ESRD/HD TTS, hlp, here w/chest pain/coughx3 days.. Possible community-acquired pneumonia. -Clinically improved -Continue antibiotics Atypical chest pain/?NSTEMI -With mild troponin leak-now resolved -Plan is for CT coronary angiography today -Continue aspirin -Follow cardiac recommendations Volume overload with ESRD -UF per renal team Diastolic dysfunction -Preserved ejection fraction -on BB -UF for volume optimization End-stage renal failure/HD TTS -Management per nephrology Anemia of ESRD -Patient is stable -Epogen per nephrology as needed Dyslipidemia -On statin HTN -BP went up today. -Additional dose of beta-blockers has been ordered by photographer lithographic already. Continue BB/CCB DVT prophylaxis: Heparin Disposition: Patient is for CT coronary angiography today and patient also needs to be dialyzed. If CTA coronary normal, likely DC planning in a.m. with outpatient follow-up. Patient was seen in collaboration w/ Result Diagram: 10/06/18 0509 10/06/18 0509 Results 24hrs Laboratory Tests Test 10/06/18 05:09 White Blood Count 7.4 # Red Blood Count 3.55 L Hemoglobin 9.8 L Hematocrit 30.8 L Mean Corpuscular Volume 86.8 Mean Corpuscular Hemoglobin 27.6 L Mean Corpuscular Hemoglobin Concent 31.8 L Red Cell Distribution Width 15.5 H Platelet Count 214 # Mean Platelet Volume 11.0 H Immature Granulocytes % 0.400 Neutrophils % 62.8 Lymphocytes % 20.0 Monocytes % 9.4 Eosinophils % 6.9 Basophils % 0.5 Nucleated Red Blood Cells % 0.0 Immature Granulocytes # 0.030 Neutrophils # 4.7 Lymphocytes # 1.5 Monocytes # 0.7 Eosinophils # 0.5 Basophils # 0.0 Nucleated Red Blood Cells # 0.0 Sodium Level 142 Potassium Level 4.0 Chloride Level 102 Carbon Dioxide Level 25 Anion Gap 15 H Blood Urea Nitrogen 71 H Creatinine 12.55 #H Est Glomerular Filtrat Rate mL/min 5 L Glucose Level 86 Calcium Level 8.7 Total Bilirubin 0.2 Direct Bilirubin 0.00 Indirect Bilirubin 0.2 Aspartate Amino Transf (AST/SGOT) 26 # Alanine Aminotransferase (ALT/SGPT) 37 Alkaline Phosphatase 78 Total Protein 6.2 Albumin 3.6 Globulin 2.60 Albumin/Globulin Ratio 1.38 Exam/Review of Systems Exam Vitals Vital Signs Date Temp Pulse Resp B/P (MAP) Pulse Ox O2 O2 Flow FiO2 Time Delivery Rate 10/06/18 72 12:19 10/06/18 98.2 19 179/107 98 11:18 (131) 10/04/18 Room Air 15:19 Intake and Output 10/05/18 10/05/18 10/06/18 1515:00 23:00 07:00 IntakeIntake Total 1600 ml 350 ml BalanceBalance 1600 ml 350 ml Results Results 24hrs Laboratory Tests Test 10/06/18 05:09 White Blood Count 7.4 # Red Blood Count 3.55 L Hemoglobin 9.8 L Hematocrit 30.8 L Mean Corpuscular Volume 86.8 Mean Corpuscular Hemoglobin 27.6 L Mean Corpuscular Hemoglobin Concent 31.8 L Red Cell Distribution Width 15.5 H Platelet Count 214 # Mean Platelet Volume 11.0 H Immature Granulocytes % 0.400 Neutrophils % 62.8 Lymphocytes % 20.0 Monocytes % 9.4 Eosinophils % 6.9 Basophils % 0.5 Nucleated Red Blood Cells % 0.0 Immature Granulocytes # 0.030 Neutrophils # 4.7 Lymphocytes # 1.5 Monocytes # 0.7 Eosinophils # 0.5 Basophils # 0.0 Nucleated Red Blood Cells # 0.0 Sodium Level 142 Potassium Level 4.0 Chloride Level 102 Carbon Dioxide Level 25 Anion Gap 15 H Blood Urea Nitrogen 71 H Creatinine 12.55 #H Est Glomerular Filtrat Rate mL/min 5 L Glucose Level 86 Calcium Level 8.7 Total Bilirubin 0.2 Direct Bilirubin 0.00 Indirect Bilirubin 0.2 Aspartate Amino Transf (AST/SGOT) 26 # Alanine Aminotransferase (ALT/SGPT) 37 Alkaline Phosphatase 78 Total Protein 6.2 Albumin 3.6 Globulin 2.60 Albumin/Globulin Ratio 1.38 Medications Medication Current Medications Vancomycin HCl (Vanco Iv Per Pharmacy) VANCOMYCIN PER PHARMACY PER PROTOCOL XX ; Start 10/03/18 at 21:00 IV Flush (NS 3 ml) 3 ml PER PROTOCOL IV ; Start 10/03/18 at 21:00 Ondansetron HCl (Zofran Inj) 4 mg Q6H PRN IV NAUSEA/VOMITING; Start 10/03/18 at 21:00 Acetaminophen (Tylenol Tab) 650 mg Q6H PRN PO .PAIN 1-3 OR TEMP; Start 10/03/18 at 21:00 Docusate Sodium (Colace) 100 mg Q12H PRN PO .CONSTIPATION; Start 10/03/18 at 21:00 Bisacodyl (Dulcolax) 5 mg DAILY PRN PO .CONSTIPATION; Start 10/03/18 at 21:00 Heparin Sodium (Porcine) (Heparin (5000 Units/1ml)) 5,000 unit Q8 SC Last administered on 10/06/18at 06:37; Admin Dose 5,000 UNIT; Start 10/03/18 at 22:00 Morphine Sulfate (morphine) 1 mg Q4H PRN IV .PAIN 7-10 Last administered on 10/04/18at 05:26; Admin Dose 1 MG; Start 10/04/18 at 01:00 Aspirin (Halfprin) 81 mg DAILY PO Last administered on 10/06/18 08:34; Admin Dose 81 MG; Start 10/04/18 at 09:00 Atorvastatin Calcium (Lipitor) 20 mg QHS PO Last administered on 10/05/18at 21:01; Admin Dose 20 MG; Start 10/04/18 at 21:00 Metoprolol Tartrate (Lopressor) 100 mg BID PO Last administered on 10/06/18 08:34; Admin Dose 100 MG; Start 10/03/18 at 23:30 Multivit/Ca Carb/ B Cmplx/FA/Prenat (Tara-Henna) 1 tab DAILY PO Last administered on 10/06/18at 08:33; Admin Dose 1 TAB; Start 10/04/18 at 09:00 Nifedipine (Procardia Xl) 60 mg BID PO Last administered on 10/06/18 08:34; Admin Dose 60 MG; Start 10/03/18 at 23:30 Miscellaneous Information Patients own medicat... BID@10,16 XX ; Start 10/04/18 at 10:00 Piperacillin Sod/ Tazobactam Sod 50 ml @ 100 mls/hr Q12 IVPB Last administered on 10/06/18at 08:26; Admin Dose 100 MLS/HR; Start 10/04/18 at 21:00 Ivabradine (Corlanor) 2.5 mg ONCE PO Last administered on 10/06/18at 11:36; Admin Dose 2.5 MG; Start 10/06/18 at 11:00; Stop 10/06/18 at 23:59 Metoprolol Tartrate (Lopressor) 50 mg NOW ONCE PO ; Start 10/06/18 at 12:30; Stop 10/06/18 at 12:31 MELISSA CAIN NP October 06, 2018 12:28
[2018-10-06] MEDS ORDERED: METOPROLOL 50 MG TAB PO ONE (12:30)
[2018-10-06] MEDS: ATORVASTATIN 20 MG TAB PO SCH (22:28)
[2018-10-07] VITALS (11 sets, daily range): BP systolic 153–168; BP diastolic 88–102; PULSE 59–72; RESP 18–19
[2018-10-07] MEDS: HEPARIN 5,000 UNIT/1 ML VIAL SC SCH ×3 (06:14→21:33)
--- NOTE | 2018-10-07 08:03 | CONS ---
Consult Date/Type/Reason Admit Date/Time October 03, 2018 at 23:26 Initial Consult Date 10/04/18 Type of Consultation: cv Requesting Provider: TOBIAS PELLETIER Date/Time of Note DATE: 10/07/18 TIME: 08:01 Subjective Interventional cardiology follow-up progress note Subjective: Discussed with the staff telemetry was reviewed patient remains sinus rhythm No chest pain or pressure now. No shortness of breath no CT coronary angiogram was ordered , however still could not be done due to issues with scheduling of the CT scan/radiology apparently Objective: General: no acute distress HEENT: NC/AT. pupils are equal. round. NECK: NO JVD. no stridor. CV: RRR. systolic murmur; no gallop or rubs. PULM:+ Left lower lobe rhonchi. GI: SOFT, NT, ND, no rebound or guarding Extremity: trace B/L LE edema. no clubbing. neuro: awake and alert, OX3. Psych: calm and pleasant rectal: deferred : normal EKG is not done yet Chest x-ray shows: Cardiomegaly is seen with mild vascular congestion. Patchy consolidation of the left mid lung could represent pneumonia EKG was personally reviewed showed normal sinus rhythm. Nonspecific T wave abnormalities Echocardiogram was personally reviewed shows: Lower limits of normal systolic function. Normal left ventricular cavity size. Mild concentric left ventricular hypertrophy. Ejection fraction is visually estimated at 50 %. Abnormal Diastolic Function. Mitral valve leaflets appear moderately thickened. Mild mitral annular calcification. Moderate mitral valve regurgitation. Normal appearance of the aortic valve. No significant aortic stenosis or insufficiency. Aortic valve Max velocity 2.10 m/sec. Max PG 16.00 mmHg. Mean PG 8.00 mmHg. Aortic sclerosis without significant stenosis. Trace aortic valve regurgitation. Normal appearance of the tricuspid valve. The estimated Peak RVSP is 34 mmHg. There is trace tricuspid regurgitation. Small pericardial effusion. Objective Vitals Vital Signs Date Temp Pulse Resp B/P (MAP) Pulse Ox O2 O2 Flow FiO2 Time Delivery Rate 10/07/18 98.5 69 18 155/88 97 07:14 (110) 10/06/18 Room Air 18:55 Intake and Output 10/06/18 10/06/18 10/07/18 1515:00 23:00 07:00 IntakeIntake Total 850 ml 500 ml OutputOutput Total 2600 ml 2000 ml BalanceBalance -1750 ml -1500 ml Results/Medications Result Diagram: 10/07/18 0531 10/07/18 0531 Results 24 hrs Laboratory Tests Test 10/07/18 05:31 White Blood Count 6.0 Red Blood Count 3.59 L Hemoglobin 10.0 L Hematocrit 31.2 L Mean Corpuscular Volume 86.9 Mean Corpuscular Hemoglobin 27.9 L Mean Corpuscular Hemoglobin Concent 32.1 Red Cell Distribution Width 15.5 H Platelet Count 199 Mean Platelet Volume 9.6 Immature Granulocytes % 0.800 H Neutrophils % 63.6 Lymphocytes % 17.8 Monocytes % 10.3 Eosinophils % 7.0 Basophils % 0.5 Nucleated Red Blood Cells % 0.0 Immature Granulocytes # 0.050 H Neutrophils # 3.8 Lymphocytes # 1.1 Monocytes # 0.6 Eosinophils # 0.4 Basophils # 0.0 Nucleated Red Blood Cells # 0.0 Sodium Level 142 Potassium Level 4.4 Chloride Level 103 Carbon Dioxide Level 29 Anion Gap 10 # Blood Urea Nitrogen 40 #H Creatinine 8.65 #H Est Glomerular Filtrat Rate mL/min 7 L Glucose Level 91 Calcium Level 8.6 Total Bilirubin 0.2 Direct Bilirubin 0.00 Indirect Bilirubin 0.2 Aspartate Amino Transf (AST/SGOT) 27 Alanine Aminotransferase (ALT/SGPT) 48 Alkaline Phosphatase 71 Total Protein 6.4 Albumin 3.5 Globulin 2.90 Albumin/Globulin Ratio 1.20 Home Meds Active Scripts Atorvastatin Calcium* (Atorvastatin Calcium*) 20 Mg Tablet, 20 MG PO QHS, #30 TAB Prov:YASMEENBandar . 06/20/15 Aspirin* (Aspirin* (EC)) 81 Mg Tablet.dr, 81 MG PO DAILY for 30 Days, TAB Prov:YASMEENBREE . 06/20/15 Multivit/Ca Carb/B Cmplx/Fa* (Tara-Henna*) 1 Tab Tab, 1 TAB PO DAILY for 30 Days, TAB Prov:YASMEENJENNIFERBandar . 06/19/15 Nifedipine* (Procardia XL*) 60 Mg Tabsr, 60 MG PO BID for 30 Days, TAB Prov:. 06/19/15 Metoprolol Tartrate* (Lopressor*) 100 Mg Tab, 100 MG PO BID for 30 Days, TAB Prov:YASMEENBREE Olsen 06/19/15 Medications Current Medications Vancomycin HCl (Vanco Iv Per Pharmacy) VANCOMYCIN PER PHARMACY PER PROTOCOL XX ; Start 10/03/18 at 21:00 IV Flush (NS 3 ml) 3 ml PER PROTOCOL IV ; Start 10/03/18 at 21:00 Ondansetron HCl (Zofran Inj) 4 mg Q6H PRN IV NAUSEA/VOMITING; Start 10/03/18 at 21:00 Acetaminophen (Tylenol Tab) 650 mg Q6H PRN PO .PAIN 1-3 OR TEMP; Start 10/03/18 at 21:00 Docusate Sodium (Colace) 100 mg Q12H PRN PO .CONSTIPATION; Start 10/03/18 at 21:00 Bisacodyl (Dulcolax) 5 mg DAILY PRN PO .CONSTIPATION; Start 10/03/18 at 21:00 Heparin Sodium (Porcine) (Heparin (5000 Units/1ml)) 5,000 unit Q8 SC Last administered on 10/07/18 06:14; Admin Dose 5,000 UNIT; Start 10/03/18 at 22:00 Morphine Sulfate (morphine) 1 mg Q4H PRN IV .PAIN 7-10 Last administered on 10/04/18 05:26; Admin Dose 1 MG; Start 10/04/18 at 01:00 Aspirin (Halfprin) 81 mg DAILY PO Last administered on 10/06/18 08:34; Admin Dose 81 MG; Start 10/04/18 at 09:00 Atorvastatin Calcium (Lipitor) 20 mg QHS PO Last administered on 10/06/18 22:28; Admin Dose 20 MG; Start 10/04/18 at 21:00 Metoprolol Tartrate (Lopressor) 100 mg BID PO Last administered on 10/06/18 22:28; Admin Dose 100 MG; Start 10/03/18 at 23:30 Multivit/Ca Carb/ B Cmplx/FA/Prenat (Tara-Henna) 1 tab DAILY PO Last administered on 10/06/18 08:33; Admin Dose 1 TAB; Start 10/04/18 at 09:00 Nifedipine (Procardia Xl) 60 mg BID PO Last administered on 10/06/18 22:28; Admin Dose 60 MG; Start 10/03/18 at 23:30 Miscellaneous Information Patients own medicat... BID@10,16 XX ; Start 10/04/18 at 10:00 Piperacillin Sod/ Tazobactam Sod 50 ml @ 100 mls/hr Q12 IVPB Last administered on 10/06/18at 22:27; Admin Dose 100 MLS/HR; Start 10/04/18 at 21:00 Clonidine (Catapres) 0.1 mg Q6H PRN PO sbp>160 Last administered on 10/06/18at 16:26; Admin Dose 0.1 MG; Start 10/06/18 at 12:30 Ivabradine (Corlanor) 7.5 mg ONCE ONCE PO ; Start 10/07/18 at 09:00; Stop 10/07/18 at 09:01 Assessment/Plan Hospital Course (Demo Recall) 1. Mildly abnormal troponin most likely secondary to below. Rule out acute IL 2. Pneumonia 3. Renal failure on dialysis 4. Hypertension 5. Pleuritic chest pain most likely secondary to his pneumonia Recommendations: EKG and echocardiogram has been reviewed Antibiotic management as per internal medicine Hemodialysis as per renal Continue with blood pressure control Awaiting CT coronary angiogram to rule out significant obstructive coronary artery disease. We will give 1 dose of corlanor to try to keep patient bradycardic for CTCA. otherwise continue with medical therapy No further cardiac recommendation at this point unless CT coronary angiogram shows significant obstructive coronary artery disease. Otherwise we will follow-up as needed only Thank you for his referral. ELSA SHAH MD [facility] ELSA SHAH MD October 07, 2018 08:03
[2018-10-07] MEDS: MULTIVIT/CA CARB/B CMPLX/FA TAB PO SCH (08:17)
[2018-10-07] MEDS: NIFEdipine (XL) 60 MG TAB PO SCH ×2 (08:17→21:29)
[2018-10-07] MEDS: METOPROLOL 100 MG TAB PO SCH ×2 (08:18→21:28)
[2018-10-07] MEDS: ASPIRIN (EC) 81 MG TAB PO SCH (08:18)
[2018-10-07] MEDS: PIPER-TAZO 2.25 GM (PMX) 50 ML IVPB SCH (08:18)
[2018-10-07] MEDS ORDERED: IVABRADINE HCL 5 MG TABLET PO ONE (09:00)
[2018-10-07] MEDS ORDERED: PROPRANOLOL 40 MG TAB PO ONE (11:00)
[2018-10-07] MEDS ORDERED: IOHEXOL 100 ML ONE (12:07)
[2018-10-07] MEDS ORDERED: SOD CHLORIDE 0.9% 100 ML ONE (12:07)
[2018-10-07] MEDS ORDERED: NITROGLYCERIN AEROSOL (4.9 GM) ONE (12:22)
--- NOTE | 2018-10-07 13:07 | PN ---
Date/Time of Note Date/Time of Note DATE: 10/07/18 TIME: 13:03 Assessment/Plan VTE Prophylaxis Risk score (from Ns)>0 risk: 1 SCD applied (from [facility] [place] No SCD contraindicated: other Pharmacological prophylaxis: heparin Lines/Catheters IV [facility] (from [facility]): Saline Lock Assessment/Plan Hospital Course SUBJECTIVE: No acute distress. OBJECTIVE: Vital signs-see below PHYSICAL EXAM: Constitutional: Adequately built,not in acute distress. HEENT: Head atraumatic and normocephalic. Eyes: Extraocular muscles intact. Anicteric sclerae. Pupils equal bilaterally, reactive to light. NECK: Supple without lymph node. CHEST: Clear and good breath sounds equally. No wheezing. No rhonchi. HEART: S1, S2. Regular rate and rhythm. ABDOMEN: Soft/non tender with no rebound tenderness. Bowel sounds were present. EXTREMITIES: No cyanosis, clubbing or edema. NEUROLOGIC: Alert and oriented x3. No focal deficit. No sensory deficit. PSYCHOSOCIAL: No signs of depression. INTEGUMENTARY: No open wounds. ASSESSMENT AND PLAN:38 yo M w/ESRD/HD TTS, hlp, here w/chest pain/coughx3 days.. Possible community-acquired pneumonia. -Clinically improved -De-escalate antibiotics to doxycycline for another 5 days. Atypical chest pain/?NSTEMI -With mild troponin leak-now resolved -Pending CT coronary angiography today -Continue aspirin -Follow cardiac recommendations Volume overload with ESRD -UF per renal team Diastolic dysfunction -Preserved ejection fraction -on BB -UF for volume optimization End-stage renal failure/HD TTS -Management per nephrology Anemia of ESRD -HH stable -Epogen per nephrology as needed Dyslipidemia -On statin HTN -Helen stable. Continue BB/CCB DVT prophylaxis: Heparin Disposition:For CTA coronary angiography today. We will follow-up with cardiology recommendations. Plan is dialysis tomorrow and likely discharge in a.m. if CTA is unremarkable. Patient was seen in collaboration w/ Result Diagram: 10/07/18 0531 10/07/18 0531 Results 24hrs Laboratory Tests Test 10/07/18 05:31 White Blood Count 6.0 Red Blood Count 3.59 L Hemoglobin 10.0 L Hematocrit 31.2 L Mean Corpuscular Volume 86.9 Mean Corpuscular Hemoglobin 27.9 L Mean Corpuscular Hemoglobin Concent 32.1 Red Cell Distribution Width 15.5 H Platelet Count 199 Mean Platelet Volume 9.6 Immature Granulocytes % 0.800 H Neutrophils % 63.6 Lymphocytes % 17.8 Monocytes % 10.3 Eosinophils % 7.0 Basophils % 0.5 Nucleated Red Blood Cells % 0.0 Immature Granulocytes # 0.050 H Neutrophils # 3.8 Lymphocytes # 1.1 Monocytes # 0.6 Eosinophils # 0.4 Basophils # 0.0 Nucleated Red Blood Cells # 0.0 Sodium Level 142 Potassium Level 4.4 Chloride Level 103 Carbon Dioxide Level 29 Anion Gap 10 # Blood Urea Nitrogen 40 #H Creatinine 8.65 #H Est Glomerular Filtrat Rate mL/min 7 L Glucose Level 91 Calcium Level 8.6 Total Bilirubin 0.2 Direct Bilirubin 0.00 Indirect Bilirubin 0.2 Aspartate Amino Transf (AST/SGOT) 27 Alanine Aminotransferase (ALT/SGPT) 48 Alkaline Phosphatase 71 Total Protein 6.4 Albumin 3.5 Globulin 2.90 Albumin/Globulin Ratio 1.20 Exam/Review of Systems Exam Vitals Vital Signs Date Temp Pulse Resp B/P (MAP) Pulse Ox O2 O2 Flow FiO2 Time Delivery Rate 10/07/18 62 12:49 10/07/18 98.7 19 158/95 99 11:24 (116) 10/06/18 Room Air 18:55 Intake and Output 10/06/18 10/06/18 10/07/18 1515:00 23:00 07:00 IntakeIntake Total 850 ml 500 ml OutputOutput Total 2600 ml 2000 ml BalanceBalance -1750 ml -1500 ml Results Results 24hrs Laboratory Tests Test 10/07/18 05:31 White Blood Count 6.0 Red Blood Count 3.59 L Hemoglobin 10.0 L Hematocrit 31.2 L Mean Corpuscular Volume 86.9 Mean Corpuscular Hemoglobin 27.9 L Mean Corpuscular Hemoglobin Concent 32.1 Red Cell Distribution Width 15.5 H Platelet Count 199 Mean Platelet Volume 9.6 Immature Granulocytes % 0.800 H Neutrophils % 63.6 Lymphocytes % 17.8 Monocytes % 10.3 Eosinophils % 7.0 Basophils % 0.5 Nucleated Red Blood Cells % 0.0 Immature Granulocytes # 0.050 H Neutrophils # 3.8 Lymphocytes # 1.1 Monocytes # 0.6 Eosinophils # 0.4 Basophils # 0.0 Nucleated Red Blood Cells # 0.0 Sodium Level 142 Potassium Level 4.4 Chloride Level 103 Carbon Dioxide Level 29 Anion Gap 10 # Blood Urea Nitrogen 40 #H Creatinine 8.65 #H Est Glomerular Filtrat Rate mL/min 7 L Glucose Level 91 Calcium Level 8.6 Total Bilirubin 0.2 Direct Bilirubin 0.00 Indirect Bilirubin 0.2 Aspartate Amino Transf (AST/SGOT) 27 Alanine Aminotransferase (ALT/SGPT) 48 Alkaline Phosphatase 71 Total Protein 6.4 Albumin 3.5 Globulin 2.90 Albumin/Globulin Ratio 1.20 Medications Medication Current Medications Vancomycin HCl (Vanco Iv Per Pharmacy) VANCOMYCIN PER PHARMACY PER PROTOCOL XX ; Start 10/03/18 at 21:00 IV Flush (NS 3 ml) 3 ml PER PROTOCOL IV ; Start 10/03/18 at 21:00 Ondansetron HCl (Zofran Inj) 4 mg Q6H PRN IV NAUSEA/VOMITING; Start 10/03/18 at 21:00 Acetaminophen (Tylenol Tab) 650 mg Q6H PRN PO .PAIN 1-3 OR TEMP; Start 10/03/18 at 21:00 Docusate Sodium (Colace) 100 mg Q12H PRN PO .CONSTIPATION; Start 10/03/18 at 21:00 Bisacodyl (Dulcolax) 5 mg DAILY PRN PO .CONSTIPATION; Start 10/03/18 at 21:00 Heparin Sodium (Porcine) (Heparin (5000 Units/1ml)) 5,000 unit Q8 SC Last administered on 10/07/18at 06:14; Admin Dose 5,000 UNIT; Start 10/03/18 at 22:00 Morphine Sulfate (morphine) 1 mg Q4H PRN IV .PAIN 7-10 Last administered on 10/04/18at 05:26; Admin Dose 1 MG; Start 10/04/18 at 01:00 Aspirin (Halfprin) 81 mg DAILY PO Last administered on 10/07/18 08:18; Admin Dose 81 MG; Start 10/04/18 at 09:00 Atorvastatin Calcium (Lipitor) 20 mg QHS PO Last administered on 10/06/18 22:28; Admin Dose 20 MG; Start 10/04/18 at 21:00 Metoprolol Tartrate (Lopressor) 100 mg BID PO Last administered on 10/07/18at 08:18; Admin Dose 100 MG; Start 10/03/18 at 23:30 Multivit/Ca Carb/ B Cmplx/FA/Prenat (Tara-Henna) 1 tab DAILY PO Last administered on 10/07/18at 08:17; Admin Dose 1 TAB; Start 10/04/18 at 09:00 Nifedipine (Procardia Xl) 60 mg BID PO Last administered on 10/07/18 08:17; Admin Dose 60 MG; Start 10/03/18 at 23:30 Miscellaneous Information Patients own medicat... BID@10,16 XX ; Start 10/04/18 at 10:00 Piperacillin Sod/ Tazobactam Sod 50 ml @ 100 mls/hr Q12 IVPB Last administered on 10/07/18at 08:18; Admin Dose 100 MLS/HR; Start 10/04/18 at 21:00 Clonidine (Catapres) 0.1 mg Q6H PRN PO sbp>160 Last administered on 10/06/18at 16:26; Admin Dose 0.1 MG; Start 10/06/18 at 12:30 MELISSA CAIN NP October 07, 2018 13:07
[2018-10-07] MEDS: DOXYCYCLINE 100 MG TAB PO SCH ×2 (14:16→21:28)
[2018-10-07] MEDS: ATORVASTATIN 20 MG TAB PO SCH (21:28)
[2018-10-08] VITALS (24 sets, daily range): BP systolic 138–198; BP diastolic 58–123; PULSE 63–92; RESP 16–18
[2018-10-08] MEDS: HEPARIN 5,000 UNIT/1 ML VIAL SC SCH ×3 (06:32→22:00)
[2018-10-08] MEDS: NIFEdipine (XL) 60 MG TAB PO SCH ×2 (09:00→20:46)
[2018-10-08] MEDS: METOPROLOL 100 MG TAB PO SCH ×2 (09:00→20:46)
[2018-10-08] MEDS: DOXYCYCLINE 100 MG TAB PO SCH ×2 (09:21→20:46)
[2018-10-08] MEDS: ASPIRIN (EC) 81 MG TAB PO SCH (09:21)
[2018-10-08] MEDS: MULTIVIT/CA CARB/B CMPLX/FA TAB PO SCH (09:21)
--- NOTE | 2018-10-08 09:57 | PN ---
Date/Time of Note Date/Time of Note DATE: 10/08/18 TIME: 09:54 Assessment/Plan VTE Prophylaxis Risk score (from [facility] [place])>0 risk: 2 SCD applied (from [facility]): No SCD contraindicated: low risk/ambulating Pharmacological prophylaxis: heparin Pharm contraindication: low risk/ambulating Lines/Catheters IV C[facility]ter Type (from [facility] Saline Lock Assessment/Plan Problems: (1) Left upper lobe pneumonia Status: Acute Comment: On antibiotics and clinically showing good progress. Continue treatment with possibility of discharge in the morning Qualifiers: Pneumonia type: due to unspecified organism Qualified Codes: J18.1 - Lobar pneumonia, unspecified organism (2) Malignant hypertension (arteriolar nephrosclerosis) Status: Acute Comment: His blood pressure is still up. And can go ahead and use an angiotensin II receptor mily since he is already on dialysis and we cannot worsen his renal function using this. This will be an add-on to his other medication Qualifiers: Hypertensive chronic kidney disease stage: stage 5 chronic kidney disease or end stage renal disease Qualified Codes: I12.0 - Hypertensive chronic kidney disease with stage 5 chronic kidney disease or end stage renal disease (3) Hypertensive retinopathy Status: Acute Comment: Noted. 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 Result Diagram: 10/07/18 0531 10/08/18 0518 Results 24hrs Laboratory Tests Test 10/08/18 05:18 Sodium Level 140 Potassium Level 4.8 Chloride Level 101 Carbon Dioxide Level 26 Anion Gap 13 Blood Urea Nitrogen 54 H Creatinine 10.71 #H Est Glomerular Filtrat Rate mL/min 5 L Glucose Level 87 Calcium Level 9.0 Subjective 24 Hr Interval Summary Free Text/Dictation Patient reports no further chest pain, no cough no wheezing no shortness of breath and no headaches Constitutional: no complaints Respiratory: no complaints Cardiovascular: no complaints Gastrointestinal: no complaints Exam/Review of Systems Exam Vitals Vital Signs Date Temp Pulse Resp B/P (MAP) Pulse Ox O2 O2 Flow FiO2 Time Delivery Rate 10/08/18 76 08:07 10/08/18 98.9 18 173/111 96 Room Air 07:10 (131) Intake and Output 10/07/18 10/07/18 10/08/18 1515:00 23:00 07:00 IntakeIntake Total 50 ml 750 ml 200 ml BalanceBalance 50 ml 750 ml 200 ml Constitutional: alert, oriented Respiratory: clear to auscultation, normal air movement Cardiovascular: regular rate and rhythm, nl pulses Gastrointestinal: soft, nl liver, spleen, non-tender Extremities: other (Left arm thrill over dialysis access) Results Results 24hrs Laboratory Tests Test 10/08/18 05:18 Sodium Level 140 Potassium Level 4.8 Chloride Level 101 Carbon Dioxide Level 26 Anion Gap 13 Blood Urea Nitrogen 54 H Creatinine 10.71 #H Est Glomerular Filtrat Rate mL/min 5 L Glucose Level 87 Calcium Level 9.0 Medications Medication Current Medications IV Flush (NS 3 ml) 3 ml PER PROTOCOL IV ; Start 10/03/18 at 21:00 Ondansetron HCl (Zofran Inj) 4 mg Q6H PRN IV NAUSEA/VOMITING; Start 10/03/18 at 21:00 Acetaminophen (Tylenol Tab) 650 mg Q6H PRN PO .PAIN 1-3 OR TEMP; Start 10/03/18 at 21:00 Docusate Sodium (Colace) 100 mg Q12H PRN PO .CONSTIPATION; Start 10/03/18 at 21:00 Bisacodyl (Dulcolax) 5 mg DAILY PRN PO .CONSTIPATION; Start 10/03/18 at 21:00 Heparin Sodium (Porcine) (Heparin (5000 Units/1ml)) 5,000 unit Q8 SC Last administered on 10/08/18at 06:32; Admin Dose 5,000 UNIT; Start 10/03/18 at 22:00 Morphine Sulfate (morphine) 1 mg Q4H PRN IV .PAIN 7-10 Last administered on 10/04/18at 05:26; Admin Dose 1 MG; Start 10/04/18 at 01:00 Aspirin (Halfprin) 81 mg DAILY PO Last administered on 10/08/18at 09:21; Admin Dose 81 MG; Start 10/04/18 at 09:00 Atorvastatin Calcium (Lipitor) 20 mg QHS PO Last administered on 10/07/18 21:28; Admin Dose 20 MG; Start 10/04/18 at 21:00 Metoprolol Tartrate (Lopressor) 100 mg BID PO Last administered on 10/07/18 21:28; Admin Dose 100 MG; Start 10/03/18 at 23:30 Multivit/Ca Carb/ B Cmplx/FA/Prenat (Tara-Henna) 1 tab DAILY PO Last administered on 10/08/18 09:21; Admin Dose 1 TAB; Start 10/04/18 at 09:00 Nifedipine (Procardia Xl) 60 mg BID PO Last administered on 10/07/18 21:29; Admin Dose 60 MG; Start 10/03/18 at 23:30 Miscellaneous Information Patients own medicat... BID@10,16 XX ; Start 10/04/18 at 10:00 Clonidine (Catapres) 0.1 mg Q6H PRN PO sbp>160 Last administered on 10/06/18at 16:26; Admin Dose 0.1 MG; Start 10/06/18 at 12:30 Doxycycline Hyclate (Vibramycin) 100 mg BID PO Last administered on 10/08/18 09:21; Admin Dose 100 MG; Start 10/07/18 at 13:30; Stop 10/12/18 at 13:29 TASHA BLAS MD Oct 08, 2018 09:57
--- NOTE | 2018-10-08 10:12 | CONS ---
Assessment/Plan Assessment/Plan Assessment/Plan (Daily) 1. Mildly abnormal troponin most likely secondary to below. Rule out acute SC 2. Pneumonia 3. Renal failure on dialysis 4. Hypertension 5. Pleuritic chest pain most likely secondary to his pneumonia Recommendations: EKG and echocardiogram has been reviewed Antibiotic management as per internal medicine Hemodialysis as per renal Continue with blood pressure contro No coronary disease by coronary CTA we will follow-up as needed only Consultation Date/Type/Reason Admit Date/Time October 03, 2018 at 23:26 Initial Consult Date 10/04/18 Type of Consult Cardiology Requesting Provider: TOBIAS PELLETIER Date/Time of Note DATE: 10/08/18 TIME: 10:11 24 HR Interval Summary Free Text/Dictation the patient withno pain Exam/Review of Systems Vital Signs Vitals Vital Signs Date Temp Pulse Resp B/P (MAP) Pulse Ox O2 O2 Flow FiO2 Time Delivery Rate 10/08/18 76 08:07 10/08/18 98.9 18 173/111 96 Room Air 07:10 (131) Intake and Output 10/07/18 10/07/18 10/08/18 1515:00 23:00 07:00 IntakeIntake Total 50 ml 750 ml 200 ml BalanceBalance 50 ml 750 ml 200 ml Labs Result Diagram: 10/07/18 0531 10/08/18 0518 Results 24hrs Laboratory Tests Test 10/08/18 05:18 Sodium Level 140 Potassium Level 4.8 Chloride Level 101 Carbon Dioxide Level 26 Anion Gap 13 Blood Urea Nitrogen 54 H Creatinine 10.71 #H Est Glomerular Filtrat Rate mL/min 5 L Glucose Level 87 Calcium Level 9.0 Medications Medications Current Medications IV Flush (NS 3 ml) 3 ml PER PROTOCOL IV ; Start 10/03/18 at 21:00 Ondansetron HCl (Zofran Inj) 4 mg Q6H PRN IV NAUSEA/VOMITING; Start 10/03/18 at 21:00 Acetaminophen (Tylenol Tab) 650 mg Q6H PRN PO .PAIN 1-3 OR TEMP; Start 10/03/18 at 21:00 Docusate Sodium (Colace) 100 mg Q12H PRN PO .CONSTIPATION; Start 10/03/18 at 21:00 Bisacodyl (Dulcolax) 5 mg DAILY PRN PO .CONSTIPATION; Start 10/03/18 at 21:00 Heparin Sodium (Porcine) (Heparin (5000 Units/1ml)) 5,000 unit Q8 SC Last administered on 10/08/18 06:32; Admin Dose 5,000 UNIT; Start 10/03/18 at 22:00 Morphine Sulfate (morphine) 1 mg Q4H PRN IV .PAIN 7-10 Last administered on 10/04/18 05:26; Admin Dose 1 MG; Start 10/04/18 at 01:00 Aspirin (Halfprin) 81 mg DAILY PO Last administered on 10/08/18 09:21; Admin Dose 81 MG; Start 10/04/18 at 09:00 Atorvastatin Calcium (Lipitor) 20 mg QHS PO Last administered on 10/07/18 21:28; Admin Dose 20 MG; Start 10/04/18 at 21:00 Metoprolol Tartrate (Lopressor) 100 mg BID PO Last administered on 10/07/18 21:28; Admin Dose 100 MG; Start 10/03/18 at 23:30 Multivit/Ca Carb/ B Cmplx/FA/Prenat (Tara-Henna) 1 tab DAILY PO Last administered on 10/08/18 09:21; Admin Dose 1 TAB; Start 10/04/18 at 09:00 Nifedipine (Procardia Xl) 60 mg BID PO Last administered on 10/07/18 21:29; Admin Dose 60 MG; Start 10/03/18 at 23:30 Miscellaneous Information Patients own medicat... BID@10,16 XX ; Start 10/04/18 at 10:00 Clonidine (Catapres) 0.1 mg Q6H PRN PO sbp>160 Last administered on 10/06/18 16:26; Admin Dose 0.1 MG; Start 10/06/18 at 12:30 Doxycycline Hyclate (Vibramycin) 100 mg BID PO Last administered on 10/08/18 09:21; Admin Dose 100 MG; Start 10/07/18 at 13:30; Stop 10/12/18 at 13:29 Losartan Potassium (Cozaar) 25 mg BID PO ; Start 10/08/18 at 10:00 JULIANNE NAPOLES MD Oct 08, 2018 10:12
[2018-10-08] MEDS: LOSARTAN 25 MG TAB PO SCH ×2 (11:45→20:47)
--- NOTE | 2018-10-08 15:17 | CONS ---
Consult Date/Type/Reason Admit Date/Time October 03, 2018 at 23:26 Initial Consult Date 10/04/18 Type of Consultation: Pulm Requesting Provider: TOBIAS PELLETIER Date/Time of Note DATE: 10/08/18 TIME: 15:15 Subjective No overnight events. Objective Vitals Vital Signs Date Temp Pulse Resp B/P (MAP) Pulse Ox O2 O2 Flow FiO2 Time Delivery Rate 10/08/18 72 12:32 10/08/18 98.3 18 186/115 99 Room Air 11:20 (138) Intake and Output 10/07/18 10/07/18 10/08/18 1515:00 23:00 07:00 IntakeIntake Total 50 ml 750 ml 200 ml BalanceBalance 50 ml 750 ml 200 ml Exam HEENT: Neck supple; no JVD; no LAD CVS: RRR, S1 and S2 CHEST: Clear ABD: Soft, NT, + BS EXT: No c/c/e Results/Medications Result Diagram: 10/07/18 0531 10/08/18 0518 Results 24 hrs Laboratory Tests Test 10/08/18 05:18 Sodium Level 140 Potassium Level 4.8 Chloride Level 101 Carbon Dioxide Level 26 Anion Gap 13 Blood Urea Nitrogen 54 H Creatinine 10.71 #H Est Glomerular Filtrat Rate mL/min 5 L Glucose Level 87 Calcium Level 9.0 Home Meds Active Scripts Atorvastatin Calcium* (Atorvastatin Calcium*) 20 Mg Tablet, 20 MG PO QHS, #30 TAB Prov:YASMEENBREE . 06/20/15 Aspirin* (Aspirin* (EC)) 81 Mg Tablet.dr, 81 MG PO DAILY for 30 Days, TAB Prov:YASMEENBREE . 06/20/15 Multivit/Ca Carb/B Cmplx/Fa* (Tara-Henna*) 1 Tab Tab, 1 TAB PO DAILY for 30 Days, TAB Prov:YASMEENBREE . 06/19/15 Nifedipine* (Procardia XL*) 60 Mg Tabsr, 60 MG PO BID for 30 Days, TAB Prov:Bandar . 06/19/15 Metoprolol Tartrate* (Lopressor*) 100 Mg Tab, 100 MG PO BID for 30 Days, TAB Prov:YASMEENBREE . 06/19/15 Medications Current Medications IV Flush (NS 3 ml) 3 ml PER PROTOCOL IV ; Start 10/03/18 at 21:00 Ondansetron HCl (Zofran Inj) 4 mg Q6H PRN IV NAUSEA/VOMITING; Start 10/03/18 at 21:00 Acetaminophen (Tylenol Tab) 650 mg Q6H PRN PO .PAIN 1-3 OR TEMP; Start 10/03/18 at 21:00 Docusate Sodium (Colace) 100 mg Q12H PRN PO .CONSTIPATION; Start 10/03/18 at 21:00 Bisacodyl (Dulcolax) 5 mg DAILY PRN PO .CONSTIPATION; Start 10/03/18 at 21:00 Heparin Sodium (Porcine) (Heparin (5000 Units/1ml)) 5,000 unit Q8 SC Last administered on 10/08/18 06:32; Admin Dose 5,000 UNIT; Start 10/03/18 at 22:00 Morphine Sulfate (morphine) 1 mg Q4H PRN IV .PAIN 7-10 Last administered on 10/04/18 05:26; Admin Dose 1 MG; Start 10/04/18 at 01:00 Aspirin (Halfprin) 81 mg DAILY PO Last administered on 10/08/18 09:21; Admin Dose 81 MG; Start 10/04/18 at 09:00 Atorvastatin Calcium (Lipitor) 20 mg QHS PO Last administered on 10/07/18 21:28; Admin Dose 20 MG; Start 10/04/18 at 21:00 Metoprolol Tartrate (Lopressor) 100 mg BID PO Last administered on 10/07/18 21:28; Admin Dose 100 MG; Start 10/03/18 at 23:30 Multivit/Ca Carb/ B Cmplx/FA/Prenat (Tara-Henna) 1 tab DAILY PO Last administered on 10/08/18 09:21; Admin Dose 1 TAB; Start 10/04/18 at 09:00 Nifedipine (Procardia Xl) 60 mg BID PO Last administered on 10/07/18 21:29; Admin Dose 60 MG; Start 10/03/18 at 23:30 Miscellaneous Information Patients own medicat... BID@10,16 XX ; Start 10/04/18 at 10:00 Clonidine (Catapres) 0.1 mg Q6H PRN PO sbp>160 Last administered on 5/30/19at 16:26; Admin Dose 0.1 MG; Start 10/06/18 at 12:30 Doxycycline Hyclate (Vibramycin) 100 mg BID PO Last administered on 10/08/18at 09:21; Admin Dose 100 MG; Start 10/07/18 at 13:30; Stop 10/12/18 at 13:29 Losartan Potassium (Cozaar) 25 mg BID PO Last administered on 10/08/18at 11:45; Admin Dose 25 MG; Start 10/08/18 at 10:00 Assessment/Plan Assessment/Plan (Daily) IMP: 1. Possible community-acquired pneumonia. 2. Volume overload. 3. End-stage renal failure on hemodialysis. 4. Cardiomegaly with likely type 2 non-ST elevation myocardial infarction. RECS: 1. HD/UF 2. Antibiotics 3. CXR in ARELI Garcia MD Oct 08, 2018 15:17
[2018-10-08] MEDS: ATORVASTATIN 20 MG TAB PO SCH (20:45)
[2018-10-09] VITALS: BP 178/104; PULSE 55; PULSE 60; RESP 18
[2018-10-09 04:00] VITALS: BP 125/76; PULSE 54; RESP 18
[2018-10-09] MEDS: HEPARIN 5,000 UNIT/1 ML VIAL SC SCH (06:00)
[2018-10-09 07:11] VITALS: BP 143/83; PULSE 59; RESP 18
[2018-10-09 08:06] VITALS: PULSE 58
[2018-10-09] MEDS: ASPIRIN (EC) 81 MG TAB PO SCH (09:07)
[2018-10-09] MEDS: MULTIVIT/CA CARB/B CMPLX/FA TAB PO SCH (09:07)
[2018-10-09] MEDS: DOXYCYCLINE 100 MG TAB PO SCH (09:07)
[2018-10-09] MEDS: LOSARTAN 25 MG TAB PO SCH (09:08)
[2018-10-09] MEDS: METOPROLOL 100 MG TAB PO SCH (09:08)
[2018-10-09] MEDS: NIFEdipine (XL) 60 MG TAB PO SCH (09:08)
--- NOTE | 2018-10-09 11:17 | DS ---
Date/Time of Note Date/Time of Note DATE: 10/09/18 TIME: 11:10 Discharge Summary Admission/Discharge Info Admit Date/Time October 03, 2018 at 23:26 Discharge Date/Time October 09, 2018 Discharge Diagnosis Left upper lobe pneumonia; accelerated hypertension; hypertensive nephrosclerosis with end-stage renal disease; hypertensive retinopathy; hyperlipidemia; diastolic dysfunction; he may have chronic kidney disease; elevated troponin Patient Condition: Good Consults Radiology-Dr. Reynolds; pulmonary-Shahana Chan; nephrology-Dr. Chirinos Procedures Cardiac CT scan Echocardiogram Conclusions: Lower limits of normal systolic function. Normal left ventricular cavity size. Mild concentric left ventricular hypertrophy. Ejection fraction is visually estimated at 50 %. Abnormal Diastolic Function. Mitral valve leaflets appear moderately thickened. Mild mitral annular calcification. Moderate mitral valve regurgitation. Normal appearance of the aortic valve. No significant aortic stenosis or insufficiency. Aortic valve Max velocity 2.10 m/sec. Max PG 16.00 mmHg. Mean PG 8.00 mmHg. Aortic sclerosis without significant stenosis. Trace aortic valve regurgitation. Normal appearance of the tricuspid valve. The estimated Peak RVSP is 34 mmHg. There is trace tricuspid regurgitation. Small pericardial effusion. Hx of Present Illness Hx of Present Illness Chief complaint: Left-sided chest pain x2 days, fevers This is a 38-year-old man with end-stage kidney disease hemodialysis dependent and last hemodialysis about 2 days ago presenting with sharp nonexertional nonradiating chest pain, tactile fever, cough x3 days. Patient also complains of nasal congestion and sore throat. He has had no vomiting or diarrhea, no abdominal pain, no headache or blurry vision, patient denies shortness of breath. HPI This is a 38-year-old man with end-stage kidney disease hemodialysis dependent and last hemodialysis about 2 days ago presenting with sharp nonexertional nonradiating chest pain, tactile fever, cough x3 days. Patient also complains of nasal congestion and sore throat. He has had no vomiting or diarrhea, no abdominal pain, no headache or blurry vision, patient denies shortness of breath. Hx of Present Illness 38-year-old man with end-stage kidney disease hemodialysis dependent and last hemodialysis about 2 days ago presenting with sharp nonexertional nonradiating chest pain, tactile fever, cough x3 days. Patient also complains of nasal congestion and sore throat. [place] [facility] [place] [facility]. Last Dialysis was 10/01/2018. Hx of Present Illness Interventional cardiology consultation note Chief complaint: Fever cough chest pain Reason for consult: Abnormal troponin History of present illness: Thank you for this referral. This is a 38-year-old gentleman with history of renal failure on dialysis who has had a fever over the past couple of days. Patient also has been coughing and has had left-sided pain sharp worse with breathing. His troponin was mildly elevated for which I was kindly asked to evaluate and treat. Patient denies any exertional chest pain or pressure denies history of coronary artery disease. Hospital Course Negrito 38-year-old gentleman on dialysis who was admitted with pneumonia. He has improved nicely with antibiotic therapy and is now stable for discharge. Please note he had a modest elevation of troponin which was due to the stress of his accelerated hypertension; and pneumonia. His blood pressure is coming down nicely with adjustments in the medication regimen. Home Meds Active Scripts Atorvastatin Calcium* (Atorvastatin Calcium*) 20 Mg Tablet, 20 MG PO QHS, #30 TAB Prov:BREE ARANA. 06/20/15 Aspirin* (Aspirin* (EC)) 81 Mg Tablet.dr 81 MG PO DAILY for 30 Days, TAB Prov:BREE ARANA M. 06/20/15 Multivit/Ca Carb/B Cmplx/Fa* (Tara-Henna*) 1 Tab Tab, 1 TAB PO DAILY for 30 Days, TAB Prov:BREE ARANA M. 06/19/15 Nifedipine* (Procardia XL*) 60 Mg Tabsr, 60 MG PO BID for 30 Days, TAB Prov:BREE ARANA M. 06/19/15 Metoprolol Tartrate* (Lopressor*) 100 Mg Tab, 100 MG PO BID for 30 Days, TAB Prov:YASMEENBREE M. 06/19/15 Follow-up Plan Dialysis under the care of Dr. Chirinos; primary care physician Primary Care Provider Care Physician No Primary Time spent on discharge: > 30 minutes Copies To: CC: JOSI CHIRINOS MD; BE FIELD MD, [facility]; ELSA SHAH MD ; TASHA BLAS MD Oct 09, 2018 11:17
--- NOTE | 2018-10-09 11:18 | PDOCDIS ---
Discharge Instructions DIAGNOSIS Discharge Diagnosis Left upper lobe pneumonia; accelerated hypertension; hypertensive nephrosclerosis with end-stage renal disease; hypertensive retinopathy; hyperlipidemia; diastolic dysfunction; he may have chronic kidney disease; elevated troponin CONDITION [id number] Patient Condition: [id number] Fair HOME CARE INSTRUCTIONS: [id number] Special Diet: [id number] Renal failure diet ACTIVITY: [id number] Activity Restrictions: [id number] Restrictions FOLLOW UP/APPOINTMENTS Follow-up Plan Dialysis under the care of Dr. Kelsey; primary care physician TASHA BALS MD Oct 09, 2018 11:18
[2018-10-09] MEDS ORDERED: LOSA25TA2 PO (11:20)
[2018-10-09] MEDS ORDERED: DOXY100T2 PO (11:20)
[2018-10-09 11:43] VITALS: BP 144/83; PULSE 61; RESP 17
[2018-10-09 12:06] VITALS: PULSE 58
[2018-10-09] MEDS ORDERED: LOSARTAN 50 MG TAB PO SCH (21:00)
[2018-10-10] MEDS ORDERED: NIFEdipine (XL) 90 MG TAB PO SCH (09:00)
== END 2018-10-09 14:30 | disposition home or self-care (01) | DRG 871 ==
LOC: E/R 19:41 → 6WM 23:26
PROVIDERS: ADMIT Family Medicine; ATTEND Family Medicine
PROC: 5A1D70Z Performance of Urinary Filtration, Intermittent, Less than 6 Hours Per Day (ICD-10-PCS; principal; 2018-10-04)
DX: A41.9 Sepsis, unspecified organism (principal); J18.1 Lobar pneumonia, unspecified organism; N18.6 End stage renal disease; I13.11 Hypertensive heart and chronic kidney disease without heart failure, with stage 5 chronic kidney disease, or end stage renal disease; E83.39 Other disorders of phosphorus metabolism; E87.70 Fluid overload, unspecified; E78.5 Hyperlipidemia, unspecified; E66.9 Obesity, unspecified; Z68.32 Body mass index [BMI] 32.0-32.9, adult; Z99.2 Dependence on renal dialysis; I20.9 Angina pectoris, unspecified; H35.039 Hypertensive retinopathy, unspecified eye; D63.1 Anemia in chronic kidney disease; E78.00 Pure hypercholesterolemia, unspecified; R79.89 Other specified abnormal findings of blood chemistry
CPT/HCPCS: 36415; 71045; 75574; 80048; 80053; 80061; 80202; 82550; 82553; 83036; 83605; 83690; 83735; 84443; 84484; 85025; 85610; 85730; 86140; 87340; 87400; 90935; 93005; 93306; 96374; J0692; J1644; J2270; J2543; J3370; J7040; J7050; Q9967